=== PATIENT | male | born 1940 | race Caucasian/White ===

== ENCOUNTER → 2024-04-17 06:56 | Outpatient (REF) | payer MEDICARE, OTHER, SELFPAY | LOC: RAD 06:56 | PROVIDERS: ATTENDING PHYSICIAN Surgery Vascular Surgery; FAMILY PHYSICIAN Internal Medicine | DX: I71.40 Abdominal aortic aneurysm, without rupture, unspecified (principal); I65.22 Occlusion and stenosis of left carotid artery; I73.9 Peripheral vascular disease, unspecified | CPT/HCPCS: 76770; 93880; 93922; 93925 ==

== ENCOUNTER → 2024-06-04 11:24 | Outpatient (REF) | payer MEDICARE, OTHER, SELFPAY | LOC: RAD 11:24 | PROVIDERS: ATTENDING PHYSICIAN Nurse Practitioner Family; FAMILY PHYSICIAN Internal Medicine | DX: U07.1 COVID-19 (principal); R09.89 Other specified symptoms and signs involving the circulatory and respiratory systems | CPT/HCPCS: 71046 ==

== ENCOUNTER 2024-06-14 17:48 | Emergency (ER) | payer MEDICARE, OTHER, SELFPAY ==
[2024-06-14 17:51] VITALS: BP 147/78
[2024-06-14 18:12] LABS: % Basophils 0.5 % (0-2); % Eosinophils 3.3 % (0-6); % Immature Granulocytes 1.8 % (0-0.5); % Lymphocytes 12.9 % (20.5-51.1); % Monocytes 16.3 % (1.7-9.3); % Neutrophils 65.2 % (42.2-75.2); Absolute Eosinophils 0.3 10^3/uL (0-0.7); Absolute Immature Granulocytes 0.1 10^3/uL (0-0.05); Absolute Monocytes 1.3 10^3/uL (0.1-0.6); Absolute Neutrophils 5.2 10^3/uL (1.4-6.5); Hematocrit 42.2 % (39.0-52.0); Hemoglobin 14.5 g/dL (13.0-18.0); Mean Corp Hgb Conc. 34.4 g/dL (33.0-37.0); Mean Corpuscular Volume 81.5 fL (80.0-94.0); Mean Platelet Volume 11.3 fL (7.4-10.4); Nucleated Red Blood Cells % 0 % (-); Platelet Count 222 10^3/uL (130-400); Red Blood Cell Count 5.18 10^6/uL (4.70-6.10); Red Cell Dist. Width 15.9 % (11.5-14.5); White Blood Cell Count 7.9 10^3/uL (4.8-10.8)
[2024-06-14 18:24] LABS: ALT (SGPT) 21 U/L (0-50); AST (SGOT) 30 U/L (17-59); Albumin 3.7 g/dl (3.5-5.0); Alkaline Phosphatase 111 U/L (38-126); Blood Urea Nitrogen 27 mg/dl (9-20); Calcium 9.5 mg/dl (8.4-10.2); Carbon Dioxide 25 mmol/L (22-30); Chloride 98 mmol/L (98-107); Glucose 84 mg/dl (70-99); Potassium 4.4 mmol/L (3.5-5.1); Sodium 131 mmol/L (135-145); Total Bilirubin 1.1 mg/dl (0.2-1.3); Total Protein 6.2 g/dl (6.3-8.2); eGFR 54.85
--- NOTE | 2024-06-14 19:46 | ED.GENMED ---
History of Present Illness
General
Chief Complaint: Blood Pressure Problem
Source: patient, spouse and family
Time Seen by Provider: 06/14/24 19:29
History of Present Illness
History of Present Illness:
84-year-old male with past medical history of AAA, previous CVA, hypertension, hyperlipidemia presenting to the emergency department for evaluation with family due to fatigue and low blood pressure since patient was diagnosed with COVID back on May
. Patient reports that he still has a very faint cough but family is more concerned with the episodes of fatigue and noting that at times his blood pressure is as low as 80/60. Patient notified his meat and seafood clerk to told him to back off his
lisinopril which she did 10 days ago and was given a prescription for midodrine but has yet to take this medication. Patient also notes he was started on antibiotic for pneumonia prevention and has been on this for 6 days, will be finished on
Tuesday. Patient is denying any chest pain, shortness of breath, abdominal pain, nausea, vomiting, bowel changes or urinary symptoms or any other concerns at this time.
Past History
Past History
ED Past Medical History: CAD, CVA, HTN, Hypercholesterolemia and Other (Previous CABG, coronary stent, hypertension, chronic kidney disease, gout); Negative CHF
ED Past Surgical History: Other (femoral artery stent placement)
Social History
Tobacco: Former smoker
Alcohol: None
Drug: None
Personal:
Living: with family
Employment: Retired
Family History
Family History: Other (Father with brain tumor brother and mother with colon cancer)
Review of Systems
Review of Systems
All Other Systems: ROS reviewed and negative except as documented in HPI and ROS
Phy Exam
Physical Exam
Physical Exam:
GENERAL: Alert , in no apparent distress
Vital signs: Blood pressure repeated and was actually elevated at 180/80
EYE: conjunctiva clear
NECK: Supple
ENT: o/p clr, mmm.
CARDIAC: Regular rate and rhythm
LUNGS: Clear breath sounds bilaterally, no acute respiratory distress, no wheezes/rales/rhonchi
NEUROLOGICAL: Alert and oriented
SKIN: Warm and dry, skin intact.
MUSCULOSKELETAL: well perfused.
PSYCH: Normal and appropriate interaction.
Scores
Heart Failure Risk
Heart Failure Risk Score: Not Applicable
Heart Score for Chest Pain Patients
STEMI patient?: Not applicable
Withdrawal Assessment of Alcohol
Withdrawal Assessment Completed?: Not applicable
Course
Orders/Labs/Results
Orders:
Orders
06/14/24 18:05
Complete Blood Count/With Diff Urgent
Comprehensive Metabolic Panel Urgent
06/14/24 19:44
Electrocardiogram (*1) Urgent
Reason for Study: Fatigue / Weakness
EKG- Treatment ONCE
06/14/24 20:41
Troponin I Urgent
Abnormal Lab Results
06/14/24
18:05
RDW 15.9 H %
(11.5-14.5)
MPV 11.3 H fL
(7.4-10.4)
Abs Immat Gran (auto) 0.1 H 10^3/uL
(0-0.05)
Absolute Lymphs (auto) 1.0 L 10^3/uL
(1.2-3.4)
Absolute Monos (auto) 1.3 H 10^3/uL
(0.1-0.6)
Immature Gran % 1.8 H %
(0-0.5)
Lymphocytes % 12.9 L %
(20.5-51.1)
Monocytes % 16.3 H %
(1.7-9.3)
Sodium 131 L mmol/L
(135-145)
BUN 27 H mg/dl
(9-20)
Total Protein 6.2 L g/dl
(6.3-8.2)
06/14/24 18:05
06/14/24 18:05
Vital Signs
Initial and Last Documented VS:
Initial Vital Signs
Temp Pulse Resp BP Pulse Ox
98.2 F 68 18 147/78 91
06/14/24 17:51 06/14/24 17:51 06/14/24 17:51 06/14/24 17:51 06/14/24 17:51
Last Documented Vital Signs
Temp Pulse Resp BP Pulse Ox
98.2 F 68 18 147/78 95
06/14/24 17:51 06/14/24 17:51 06/14/24 17:51 06/14/24 17:51 06/14/24 20:35
Wafer Polisher consulted with Physician
Wafer Polisher consulted with physician?: Yes
Name of Physician Consulted: Albert
MDM/Problems Addressed
Differential Diagnosis Includes:
Post COVID syndrome, symptomatic hypotension, electrolyte disturbance, less concern for bacteremia/sepsis
MDM/Problems Addressed:
84-year-old male presenting emergency department for evaluation of generalized fatigue and reportedly low blood pressure at home, here in the ER blood pressure is actually on the higher side and this is without patient taking midodrine that was
prescribed by nephrology. Lab work was initiated in triage and shows very mild hyponatremia and prerenal azotemia. I did offer fluids however patient declines and states he is okay continuing to drink. Will check an EKG. At this time I do think
it is reasonable for outpatient management. Patient and family are in agreement. As long as EKG is unremarkable patient will be stable for discharge home.
*Pulse Oximetry
Patient hypoxic: no
*EKG
Interpreted by ED Provider?: Yes
Comparison EKG: changes noted
Heart Rate: 62
Rate: normal
Rhythm: sinus
Napoleon: normal axis
Ischemia: T-wave inversion (V2 through V4)
*Critical Care Note
Total Time (30-74mins, 75-104mins- exclusive of procedures): Not Applicable
Data Reviewed
Review of Other/Old Records Reveals: Labs and Records
Source: patient, records, spouse and family
Comment
Comment:
Patient's EKG did show new T wave inversions in leads V2 through V4. This is changed from his last EKG in 2021. Due to these changes and patient's presenting symptoms will add troponin onto workup. If this is negative patient can be discharged
home with close outpatient follow-up.
Patient Management
Escalation/DeEscalation of care consider admission/obs:
Patient's troponin is negative. Stable for discharge home and advised on close outpatient follow-up with primary care provider. Patient and family are aware of return precautions to the ER.
ED Attending Note
-
Portions of this chart may have been created with voice recognition software.� Occasional wrong word or��sound alike� substitutions may have occurred due to the inherent limitations of voice recognition software.
Discharge Plan
Departure
Patient Disposition: Home (Routine Discharge)
Date of Disposition: 06/14/24
Time of Disposition: 21:16
Patient with high blood pressure during this ER visit?: Yes
Discharge Problem:
Fatigue
Instructions: Fatigue (DC)
Prescriptions:
No Action
atorvastatin 40 MG tablet
40 mg PO DAILY
allopurinol 100 MG tablet
100 mg PO DAILY
coenzyme L70-[id number] E 1 CAP capsule
1 cap PO DAILY
Eliquis 5 MG tablet
5 mg PO BID Qty: 120 0RF
aspirin [Aspir-Low] 81 MG tablet,delayed release (DR/EC)
81 mg PO DAILY Qty: 30 0RF
pantoprazole 40 MG tablet,delayed release (DR/EC)
40 mg PO DAILY
lisinopril 10 mg Tablet
10 mg PO DAILY
amiodarone 100 mg Tablet
100 mg PO Q2D
cholecalciferol (vitamin D3) [Vitamin D3] 50 mcg (2,000 unit) Tablet
2,000 unit PO DAILY
iron 25 MG
25 mg PO DAILY
Referrals:
UNKNOWN - PT DOES,NOT KNOW [Family Provider] -
Interventions
Interventions:
*Risk Screen - Suicide Last Done: 06/14/24 17:51
*General Assessment Last Done: 06/14/24 17:51
*Neglect/Abuse Screening Last Done: 06/14/24 17:51
ED- Fall Risk Assessment Last Done: 06/14/24 20:35
*ED COVID-19 Vaccine History Last Done: 06/14/24 17:51
ED- Cardiac Assessment Last Done: 06/14/24 20:35
ED- Neurological Assessment Last Done: 06/14/24 20:35
ED- Pulmonary Assessment Last Done: 06/14/24 20:35
Discharge Date and Time
Print Language: SINHALA
[2024-06-14 21:11] LABS: Troponin I 0.019 ng/ml
[2024-06-14 21:56] VITALS: BP 138/72
== END 2024-06-14 22:02 | disposition home or self-care (01) ==
LOC: EMR 17:48
PROVIDERS: Physician Assistant Medical; Student in an Organized Health Care Education/Training Program; EMERGENCY PHYSICIAN Emergency Medicine
DX: R53.83 Other fatigue (principal); I12.9 Hypertensive chronic kidney disease with stage 1 through stage 4 chronic kidney disease, or unspecified chronic kidney disease; N18.9 Chronic kidney disease, unspecified; Z86.73 Personal history of transient ischemic attack (TIA), and cerebral infarction without residual deficits; E78.00 Pure hypercholesterolemia, unspecified; Z87.891 Personal history of nicotine dependence
CPT/HCPCS: 99284; 80053; 84484; 85025; 93005

== ENCOUNTER 2024-07-03 04:11 | Inpatient (IN) | payer MEDICARE, OTHER, SELFPAY ==
[2024-07-03] VITALS (25 sets, daily range): BP systolic 102–155; BP diastolic 57–94; BMI 22.8; BMI 21.9; BMI 21.4
[2024-07-03 01:10] LABS: % Basophils 0.6 % (0-2); % Eosinophils 3.8 % (0-6); % Immature Granulocytes 0.4 % (0-0.5); % Lymphocytes 13.9 % (20.5-51.1); % Monocytes 12.5 % (1.7-9.3); % Neutrophils 68.8 % (42.2-75.2); Absolute Basophils 0.1 10^3/uL (0-0.2); Absolute Eosinophils 0.4 10^3/uL (0-0.7); Absolute Immature Granulocytes 0.1 10^3/uL (0-0.05); Absolute Lymphocytes 1.6 10^3/uL (1.2-3.4); Absolute Monocytes 1.4 10^3/uL (0.1-0.6); Absolute Neutrophils 7.8 10^3/uL (1.4-6.5); Hematocrit 39.4 % (39.0-52.0); Hemoglobin 13.3 g/dL (13.0-18.0); Mean Corp Hgb Conc. 33.8 g/dL (33.0-37.0); Mean Corpuscular Hgb 27.9 pg (27.0-31.0); Mean Corpuscular Volume 82.8 fL (80.0-94.0); Nucleated Red Blood Cells % 0 % (-); Platelet Count 185 10^3/uL (130-400); Red Blood Cell Count 4.76 10^6/uL (4.70-6.10); Red Cell Dist. Width 17.3 % (11.5-14.5); White Blood Cell Count 11.3 10^3/uL (4.8-10.8)
[2024-07-03 01:23] LABS: ALT (SGPT) 20 U/L (0-50); AST (SGOT) 44 U/L (17-59); Albumin 3.5 g/dl (3.5-5.0); Alkaline Phosphatase 96 U/L (38-126); Blood Urea Nitrogen 22 mg/dl (9-20); Calcium 9.3 mg/dl (8.4-10.2); Carbon Dioxide 25 mmol/L (22-30); Chloride 103 mmol/L (98-107); Estimated Creatinine Clearance 45 ml/min; Glucose 109 mg/dl (70-99); Potassium 3.9 mmol/L (3.5-5.1); Sodium 140 mmol/L (135-145); Total Protein 6.1 g/dl (6.3-8.2); eGFR 50.18
--- NOTE | 2024-07-03 01:32 | ED.GENMED ---
History of Present Illness
<LUCRECIA Bates - Last Filed: 07/03/24 03:58>
General
Chief Complaint: Breathing Problem
Source: patient
Exam Limitations: none
Time Seen by Provider: 07/03/24 01:13
History of Present Illness
History of Present Illness:
This is a 84 year old male that comes in with c/o SOB. States that on Tuesday morning when he got up he always checked his BP. States that his HR was elevated to 131. States that he waited a while and it remained at 125-131. States that he takes
Amiodarone every other day and yesterday was an off day. States that he did take a dose. Then tonight he started around 11:15 with SOB. States that he tired to wait a while and he laid down for 20-30 min and things did not get any better so he came
in. Denies any fever, chills, chest pain, abd pain, nausea, vomiting, diarrhea, headache, dizziness, urinary burning.
Past History
<LUCRECIA Bates - Last Filed: 07/03/24 03:58>
Past History
ED Past Medical History: CAD, CVA (No residual weakness), HTN, Hypercholesterolemia and Other ( chronic kidney disease, gout, PVD, Gi bleeding, ); Negative CHF
ED Past Surgical History: Cardiac and Other (femoral artery stent placement, AAA repaired, Eye lid surgery, Right fem-pop bypass with 2 stents, Hernia repair)
Social History
Tobacco: Former smoker
Alcohol: None
Drug: None
Personal:
Living: with family
Employment: Retired
Family History
Family History: Other (Father with brain tumor brother and mother with colon cancer)
Review of Systems
<LUCRECIA Bates - Last Filed: 07/03/24 03:58>
Review of Systems
All Other Systems: ROS reviewed and negative except as documented in HPI and ROS
Constitutional: Reports no symptoms; Denies fever or chills
EENT: Reports no symptoms
Respiratory: Reports trouble breathing; Denies cough
Cardiac: Reports no symptoms; Denies chest pain
ABD/GI: Reports no symptoms; Denies abdominal pain, nausea, vomiting or diarrhea
: Reports no symptoms; Denies dysuria, frequency or urgency
Musculoskeletal: Reports no symptoms
Skin: Reports no symptoms
Neurological: Reports no symptoms; Denies dizzy or headache
Psychiatric: Reports no symptoms
Phy Exam
<LUCRECIA Bates - Last Filed: 07/03/24 03:58>
General Physical Exam
General Presentation: mild distress
General age: appears stated age
General Skin: warm and dry
General Habitus: elderly
General Mental: alert
General Hydration: appears well hydrated
ENT Exam
ENT Exam: TM's normal (Moderate amount of Cerumen), pharynx normal and neck supple
Eye Exam
Eye Exam: EOMI
Cardiovascular Exam
Cardiovascular Exam: regular rate/rhythm (PVC's noted) and normal peripheral pulses
Pulmonary Exam
Pulmonary Exam: chest non tender, no rhonchi, no wheezing and other (Bilateral rales noted, Occasional dry cough noted)
Gastrointestinal Exam
Gastrointestinal Exam: normal bowel sounds, non tender, soft, no organomegaly, no pulsatile mass and non distended
Musculoskeletal Exam
Musculoskeletal Exam: full ROM and edema (+1 pitting edema R>L)
Skin Exam
Skin Exam: normal color, warm/dry, no rash and no petechia
Psychiatric Exam
Psychiatric Exam: normal mood/affect
Scores
<LUCRECIA Bates - Last Filed: 07/03/24 03:58>
Heart Failure Risk
Heart Failure Risk Score: Yes
History of Stroke or TIA: Yes
History of intubation for respiratory distress: No
Heart rate on ED arrival >/= 110: No
SaO2 <90% on arrival on room air: Yes
HR >/=110 during 3min walk test (or too ill to perform test): Yes
ECG has acute ischemic changes: No
Urea >/=12mmol/L (BUN 33.6mg/dL): No
Serum CO2>/=35mmol/L: No
Troponin I or T elevated to LA Level (0.4mg/dL): Yes
NT-proBNP >/=5,000ng/L (5,000pg/ml): Yes
HF Risk Score: 7
Admission Status: VERY HIGH RISK 69.8% Consider admission to hospital
Course
<Chante Hannah, LUCRECIA - Last Filed: 07/03/24 03:58>
Orders/Labs/Results
Orders:
Orders
07/03/24 00:51
Chest [CR Chest - 2 Views ] Urgent
Comment:
Reason For Exam: SOB
07/03/24 00:57
CMP [Comprehensive Metabolic Panel] Urgent
Complete Blood Count/With Diff Urgent
07/03/24 01:42
Ondansetron Orally Disint [Zofran Odt (Orally Disintegrating)] 4 mg PO NOW STA
07/03/24 01:57
Furosemide [Lasix] 60 mg IV NOW STA
07/03/24 02:01
NT-proBNP Urgent
Troponin I Urgent
07/03/24 02:23
Electrocardiogram (*1) Urgent
Reason for Study: Shortness of Breath
EKG- Treatment ONCE
07/03/24 02:25
Diltiazem 125 mg/125 ml Nss [Cardizem] 125 mg in 125 ml IV NOW
Initial dose in mg/hr, then titrate:: 5
Titrate to keep:: Heart rate 80-100 bpm
Titrate by mg/hr:: 5 mg/hr
Frequency of titrations (minutes):: 15
Maximum dose in mg/hr:: 15
Diltiazem HCl [Cardizem] 10 mg IV NOW STA
07/03/24 02:42
EKG- Treatment ONCE
07/03/24 03:43
Aspirin 325 mg PO NOW STA
07/03/24 03:49
EKG [Electrocardiogram (*1)] Urgent
Reason for Study: Chest Pain
Troponin I Urgent
07/03/24 03:53
PTT Urgent
Comment: Obtain baseline before beginning heparin infusion if not already collected
Pharmacy Request to Place See Dose Instructions PO NOW STA
Discontinue all Active Warfarin orders?: Yes
Nursing to Place Non Medication Order As Directed
Physician Order: PTT 6 hours after initial start of Heparin infusion
07/03/24 04:00
Heparin 69103 Units/250 ml 25,000 units in 250 ml IV PER PROTOCOL
Weight to be used for heparin protocol in kilograms (kg):: 78.5
Protocol:: Cardiac Tx/Acute Coronary
PTT Goal Range to be used:: PTT 73 to 111 seconds
Order type:: Initial
INITIAL Infusion Dose (UNITS/KG/hr) & then follow protocol:: 12 units/kg/hr
Infusion Dose in UNITS/hr & then follow protocol (UNITS/hr):: 950
INFUSION RATE in mL/hr & then follow protocol (mL/hr):: 9.5
PTT less than or equal to 64 seconds:: Increase rate by 200 units/hr (+ 2 mL/hr)
PTT 64.1 to 72.9 seconds:: Increase rate by 100 units/hr (+ 1 mL/hr)
PTT 73 to 111 seconds:: Target Range. No change in rate.
PTT 111.1 to 130.9 seconds:: Decrease rate by 100 units/hr (- 1 mL/hr)
PTT 131 to 199.9 seconds:: HOLD for 1 hr. Then decrease rate by 200 units/hr (- 2 mL/hr)
PTT greater than or equal to 200 seconds:: HOLD for 2 hrs & Notify Provider. Then decrease by 200 units/hr (-
2 mL/hr)
Lab follow-up:: Each change, PTT q6h until 2 consecutive are therapeutic. Then PTT
daily.
Pharmacy Request to Place See Dose Instructions IV DIRECTED
07/03/24 05:00
Electrocardiogram (*1) Urgent
Reason for Study: Shortness of Breath
Other Reason for Exam: Repeat with Troponin
Troponin I Urgent
Abnormal Lab Results
07/03/24 07/03/24
00:57 02:01
WBC 11.3 H 10^3/uL
(4.8-10.8)
RDW 17.3 H %
(11.5-14.5)
MPV 12.0 H fL
(7.4-10.4)
Abs Immat Gran (auto) 0.1 H 10^3/uL
(0-0.05)
Absolute Neuts (auto) 7.8 H 10^3/uL
(1.4-6.5)
Absolute Monos (auto) 1.4 H 10^3/uL
(0.1-0.6)
Lymphocytes % 13.9 L %
(20.5-51.1)
Monocytes % 12.5 H %
(1.7-9.3)
BUN 22 H mg/dl
(9-20)
Creatinine 1.4 H mg/dL
(0.7-1.3)
Glucose 109 H mg/dl
(70-99)
Troponin I 4.230 H* ng/ml
Total Protein 6.1 L g/dl
(6.3-8.2)
07/03/24 00:57
07/03/24 00:57
Leukocytosis, Dehydration. Cr slightly elevated. glucose nonfasting. Total jaron slightly low. Troponin 4.230, Pro-BNP 23,900
Vital Signs
Initial and Last Documented VS:
Initial Vital Signs
Temp Pulse Resp BP Pulse Ox
98.6 F 93 28 155/93 87
07/03/24 00:52 07/03/24 00:52 07/03/24 00:52 07/03/24 00:52 07/03/24 00:52
Last Documented Vital Signs
Temp Pulse Resp BP Pulse Ox
98.6 F 107 20 120/78 93
07/03/24 00:52 07/03/24 03:45 07/03/24 03:45 07/03/24 03:00 07/03/24 03:45
Supervisor Dimension Warehouse consulted with Physician
Supervisor Dimension Warehouse consulted with physician?: Yes
Name of Physician Consulted: Dr. Mccullough
<Dashawn Mccullough, DO - Last Filed: 07/03/24 02:31>
Orders/Labs/Results
Orders:
Orders
07/03/24 00:51
Chest [CR Chest - 2 Views ] Urgent
Comment:
Reason For Exam: SOB
07/03/24 00:57
CMP [Comprehensive Metabolic Panel] Urgent
Complete Blood Count/With Diff Urgent
07/03/24 01:42
Ondansetron Orally Disint [Zofran Odt (Orally Disintegrating)] 4 mg PO NOW STA
07/03/24 01:57
Furosemide [Lasix] 60 mg IV NOW STA
07/03/24 02:01
NT-proBNP Urgent
Troponin I Urgent
07/03/24 02:23
Electrocardiogram (*1) Urgent
Reason for Study: Shortness of Breath
EKG- Treatment ONCE
07/03/24 02:25
Diltiazem 125 mg/125 ml Nss [Cardizem] 125 mg in 125 ml IV NOW
Initial dose in mg/hr, then titrate:: 5
Titrate to keep:: Heart rate 80-100 bpm
Titrate by mg/hr:: 5 mg/hr
Frequency of titrations (minutes):: 15
Maximum dose in mg/hr:: 15
Diltiazem HCl [Cardizem] 10 mg IV NOW STA
07/03/24 02:42
EKG- Treatment ONCE
07/03/24 03:43
Aspirin 325 mg PO NOW STA
07/03/24 03:49
EKG [Electrocardiogram (*1)] Urgent
Reason for Study: Chest Pain
Troponin I Urgent
07/03/24 03:53
PTT Urgent
Comment: Obtain baseline before beginning heparin infusion if not already collected
Pharmacy Request to Place See Dose Instructions PO NOW STA
Discontinue all Active Warfarin orders?: Yes
Nursing to Place Non Medication Order As Directed
Physician Order: PTT 6 hours after initial start of Heparin infusion
07/03/24 04:00
Heparin [id number] Units/250 ml 25,000 units in 250 ml IV PER PROTOCOL
Weight to be used for heparin protocol in kilograms (kg):: 78.5
Protocol:: Cardiac Tx/Acute Coronary
PTT Goal Range to be used:: PTT 73 to 111 seconds
Order type:: Initial
INITIAL Infusion Dose (UNITS/KG/hr) & then follow protocol:: 12 units/kg/hr
Infusion Dose in UNITS/hr & then follow protocol (UNITS/hr):: 950
INFUSION RATE in mL/hr & then follow protocol (mL/hr):: 9.5
PTT less than or equal to 64 seconds:: Increase rate by 200 units/hr (+ 2 mL/hr)
PTT 64.1 to 72.9 seconds:: Increase rate by 100 units/hr (+ 1 mL/hr)
PTT 73 to 111 seconds:: Target Range. No change in rate.
PTT 111.1 to 130.9 seconds:: Decrease rate by 100 units/hr (- 1 mL/hr)
PTT 131 to 199.9 seconds:: HOLD for 1 hr. Then decrease rate by 200 units/hr (- 2 mL/hr)
PTT greater than or equal to 200 seconds:: HOLD for 2 hrs & Notify Provider. Then decrease by 200 units/hr (-
2 mL/hr)
Lab follow-up:: Each change, PTT q6h until 2 consecutive are therapeutic. Then PTT
daily.
Pharmacy Request to Place See Dose Instructions IV DIRECTED
07/03/24 05:00
Electrocardiogram (*1) Urgent
Reason for Study: Shortness of Breath
Other Reason for Exam: Repeat with Troponin
Troponin I Urgent
Abnormal Lab Results
07/03/24 07/03/24
00:57 02:01
WBC 11.3 H 10^3/uL
(4.8-10.8)
RDW 17.3 H %
(11.5-14.5)
MPV 12.0 H fL
(7.4-10.4)
Abs Immat Gran (auto) 0.1 H 10^3/uL
(0-0.05)
Absolute Neuts (auto) 7.8 H 10^3/uL
(1.4-6.5)
Absolute Monos (auto) 1.4 H 10^3/uL
(0.1-0.6)
Lymphocytes % 13.9 L %
(20.5-51.1)
Monocytes % 12.5 H %
(1.7-9.3)
BUN 22 H mg/dl
(9-20)
Creatinine 1.4 H mg/dL
(0.7-1.3)
Glucose 109 H mg/dl
(70-99)
Troponin I 4.230 H* ng/ml
Total Protein 6.1 L g/dl
(6.3-8.2)
07/03/24 00:57
07/03/24 00:57
Vital Signs
Initial and Last Documented VS:
Initial Vital Signs
Temp Pulse Resp BP Pulse Ox
98.6 F 93 28 155/93 87
07/03/24 00:52 07/03/24 00:52 07/03/24 00:52 07/03/24 00:52 07/03/24 00:52
Last Documented Vital Signs
Temp Pulse Resp BP Pulse Ox
98.6 F 107 20 120/78 93
07/03/24 00:52 07/03/24 03:45 07/03/24 03:45 07/03/24 03:00 07/03/24 03:45
<LUCRECIA Bates - Last Filed: 07/03/24 03:58>
MDM/Problems Addressed
Differential Diagnosis Includes:
CHF, Pleural effusion,
MDM/Problems Addressed:
This is a 84 year old male that comes in with c/o SOB. States that his heart rate was elevated today and then tonight he was SOB.
Will check labs, Chest x-ray
Back into see patient. Explained that his chest x-ray shows CHF and there is a pleural effusion. Will give IV Lasix and admit as patient is also Hypoxic and on 4 liters to get a Pulse ox of 95%,
Patient went into atrial fib. ECG: rate 133, Atrial fib with PVC's, Normal axis. QRS normal. ST elevation, V2, V3, V4, Will start on Cardizem.
Chronic conditions affecting care:
NA
Acute Exacerbation and/or Progression of Chronic Illness:
NA
<LUCRECIA Bates - Last Filed: 07/03/24 03:58>
*Pulse Oximetry
Patient hypoxic: yes
Comment: 88% on 2 liters to increased to 4 liters nasal canula
*Food Preparer Interpretation
Rate: normal
Heart Rate: 89
Rhythm: sinus and PVC's (Multifocal, Couplets noted)
*Critical Care Note
Total Time (30-74mins, 75-104mins- exclusive of procedures): Not Applicable
ED Attending Note
<LUCRECIA Bates - Last Filed: 07/03/24 03:58>
-
Portions of this chart may have been created with voice recognition software.� Occasional wrong word or��sound alike� substitutions may have occurred due to the inherent limitations of voice recognition software.
<Dashawn Mccullough DO - Last Filed: 07/03/24 02:31>
ED Attending Note
Patient seen and examined by attending physician: Yes
I performed the substantive portion of visit, reviewed & personally made and approve the management plan that is documented in note by myself or NAOMIE.: Yes
ED Attending Note:
Seen with SOFTWARE INSTALLER examined independently shortness of breath, chest x-ray labs noted looks like he went into rapid A-fib was started on Cardizem
Discharge Plan
Departure
Patient Disposition: Admit
Date of Disposition: 07/03/24
Time of Disposition: 02:02
Admit to: Telemetry
Presentation/result/management discussed w/ accepting MD/DO: Hospitalist
Patient with high blood pressure during this ER visit?: No
Condition: Good
Covid-19: Not Applicable
Discharge Problem:
CHF (congestive heart failure), Pleural effusion, Hypoxia, Elevated troponin
Prescriptions:
No Action
atorvastatin 40 MG tablet
40 mg PO DAILY
allopurinol 100 MG tablet
100 mg PO DAILY
coenzyme L85-jchrzty E 1 CAP capsule
1 cap PO DAILY
aspirin [Aspir-Low] 81 MG tablet,delayed release (DR/EC)
81 mg PO DAILY Qty: 30 0RF
pantoprazole 40 MG tablet,delayed release (DR/EC)
40 mg PO DAILY
lisinopril 10 mg Tablet
10 mg PO DAILY
amiodarone 100 mg Tablet
100 mg PO Q2D
cholecalciferol (vitamin D3) [Vitamin D3] 50 mcg (2,000 unit) Tablet
2,000 unit PO DAILY
iron 25 MG
25 mg PO DAILY
Eliquis 5 MG tablet
2.5 mg PO BID
Referrals:
Ron Cazares, DO [Family Provider] -
Interventions
Interventions:
*Risk Screen - Suicide Last Done: 07/03/24 00:52
*General Assessment Last Done: 07/03/24 00:52
*Neglect/Abuse Screening Last Done: 07/03/24 00:52
ED- Fall Risk Assessment Last Done: 07/03/24 00:59
*ED COVID-19 Vaccine History Last Done: 07/03/24 00:52
ED- Cardiac Assessment Last Done: 07/03/24 01:04
ED- Pulmonary Assessment Last Done: 07/03/24 01:04
Discharge Date and Time
Print Language: BURUN[place]
[2024-07-03] MEDS: LASIX 60 MG IV (02:02)
[2024-07-03] MEDS: CARDIZEM 10 MG IV (02:36)
[2024-07-03] MEDS: CARDIZEM 125 IV ×2 (02:38→10:52)
[2024-07-03 02:41] LABS: NT-proBNP 23900 pg/ml
[2024-07-03] MEDS: ASPIRIN 325 MG PO (03:45)
--- NOTE | 2024-07-03 04:01 | HPS.HSE ---
Family Physician
-
Family Physician: Ron Cazares
Chief Complaint
-
SOB
History of Present Illness
Patient is an 84y M with PMH significant for paroxysmal A-Fib, ASCVD / PAD and CKD III who presents to ED complaining of SOB. Patient states that he checked his BP Tuesday AM and noted that his pulse was elevated in the 130s. This was not
typical for him. He has no complaints / symptoms at that time including chest pain, dyspnea or palpitations. He took an extra amiodarone after discussion with his Digital Sales Planner (is typically on fukvp-amrzu-wmy dosing and today is an 'off' day). His
heart rates decreased into the 80s later in the day. This evening around 11PM he woke to use the bathroom. He walked to the bathroom and back and became abruptly short of breath. He sat down in bed however his symptoms did not subside. he woke
his and they presented to the ED for further evaluation.
Patient denies any em of chest pain, pressure, etc. He denies any prior h/o similar symptoms, prior [place], etc.
In the ED, patient was placed on supplemental oxygen and received a dose of IV Lasix and he states that he feels improved from arrival.
Medical History
Past Medical History
Past Medical History: Reports Other
Additional Past Medical History:
ASCVD (PAD / Carotid Stenosis)
Paroxysmal Atrial Fibrillation (Lora-operatively)
AAA
CKD III
GERD / PUD
Rheumatic Fever
Past Surgical History: Reports Other
Additional Past Surgical History:
Right Fem-Pop Bypass
Bypass Angioplasty
EVAR
Femoral Artery Aneurysm Repair
Bilateral Ectropion Surgeries
Hernia Repair
Social History
Tobacco: Former Smoker (Quit smoking 15 years ago. > 40 pack years total use.)
Alcohol: None
Drug: None
Personal:
Living: With Family
Family History
Family History: Other (Mother: Colon Cancer Father: Colon Cancer Brother: Brain Tumor)
Allergies / Home Medications
Allergies reflects when Allergies were last updated in [facility].
Home Medications with original date entered in [facility]
Allergy/Medication List:
Allergies
Allergy/AdvReac Type Severity Reaction Status Date / Time
Iodinated Contrast Media Allergy itch/rednes Verified 07/03/24 00:58
[IV Dye, Iodine Containing s
Contrast ]
Home Medications
atorvastatin 40 mg tablet 40 mg PO DAILY High cholesterol 11/10/16
allopurinol 100 mg tablet 100 mg PO DAILY Gout 09/08/21
coenzyme [id number] E 100 mg-100 unit capsule 1 cap PO DAILY Supplement 11/12/21
aspirin 81 mg tablet,delayed release (Aspir-Low) 81 mg PO DAILY ##30 11/24/21
amiodarone 100 mg tablet 100 mg PO Q2D 07/26/22
cholecalciferol (vitamin D3) 50 mcg (2,000 unit) tablet (Vitamin D3) 2,000 unit PO DAILY 07/26/22
iron 25 mg PO DAILY 07/26/22
lisinopril 10 mg tablet 10 mg PO DAILY 07/26/22
pantoprazole 40 mg tablet,delayed release 40 mg PO DAILY 07/26/22
apixaban 5 mg tablet (Eliquis) 2.5 mg PO BID 07/03/24
Review of Systems
-
History Source: Patient
A 12 point ROS was completed and negative except as noted: Yes
Constitutional: Reports Fatigue; Denies Fever or Chills
EENT: Denies Sore Throat
Respiratory: Reports Trouble Breathing; Denies Cough or Hemoptysis
Cardiac: Denies Chest Pain, Diaphoresis, Palpitations or Syncope
Abdomen/GI: Denies Abdominal Pain, Nausea, Vomiting or Diarrhea
: Denies Dysuria or Flank Pain
Musculoskeletal: Denies Joint Pain or Edema
Neurological: Denies Dizzy or Headache
Psych: Denies Depression or Anxiety
Physical Exam
Vital Signs
Vital Signs
Temp Pulse Resp BP Pulse Ox
98.6 F 107 20 120/78 93
07/03/24 00:52 07/03/24 03:45 07/03/24 03:45 07/03/24 03:00 07/03/24 03:45
Physical Exam
General: Other ( 84y M in no acute distress)
HEENT: Moist mucous membranes, PERRLA and Other (No JVD. Pos HJR.)
Respiratory: Other (Bibasilar rales about 1/2 up. No wheezes / rhonchi.)
Cardiac: S1/S2, Irregular Rhythm, Tachycardia and Murmur (II/ ARCENIO)
GI: Soft, Non Tender, Non Distended and Normal Bowel Sounds
Musculoskeletal: No Clubbing, No Cyanosis and Other (1+ pitting edema RLE which patient states is chronic.)
Neuro: AO x 3
Laboratory Results
-
07/03/24 00:57
07/03/24 00:57
Laboratory Results
Total Bilirubin 1.0 mg/dl (0.2-1.3) 07/03/24 00:57
AST 44 U/L (17-59) 07/03/24 00:57
ALT 20 U/L (0-50) 07/03/24 00:57
Alkaline Phosphatase 96 U/L (38-126) 07/03/24 00:57
Troponin I 4.230 ng/ml H* 07/03/24 02:01
Impression/Plan
-
A/P: Patient is an 84y M with PMH significant for ASCVD, CKD and PA-Fib who presents to ED complaining of SOB.
ACS / AMI
- Admit to IVU for further evaluation and treatment.
- Patient with ST-T changes on EKG concerning for active ischemia and initial troponin in the ED of 4.23.
- ASA given now and will start IV heparin infusion.
- Patient states that dyspnea (presenting symptom) is improved from arrival.
- ASA daily, statin, heparin, etc.
- Cardiology consulted - probable ischemic evaluation during stay.
- Follow for any new / worsening symptoms.
- Follow troponin to peak / monitor serial EKGs.
Acute HF - Unknown Type
- Suspect HFrEF due to AMI / ischemia as noted above.
- Pulm edema by exam and CXR - no prior h/o same.
- BNP = 23k
- Continue IV Lasix BID and follow I/Os, daily weights, etc.
- Check Echo.
- Cardiology eval as noted above.
Paroxysmal Atrial Fibrillation with Rapid Ventricular response
- Patient in sinus rhythm with PACs on arrival - now in A-Fib with RVR.
- IV Cardizem gtt started in the ED - titrate as needed for rate control.
- Hold Eliquis acutely while on IV heparin.
CKD III
- Stable. SCr is at / near known baseline.
- Follow for changes with diuresis +/- eventual cath.
- Hold lisinopril acutely - but would likely restart prior to D/C.
GERD / PUD
- Prior h/o GI bleeding on DAPT following PAD procedure.
- Continue daily PPI.
- Monitor for any signs / symptoms of blood loss.
DVT Prophylaxis: On IV Heparin
Code Status: Full
[2024-07-03 04:19] LABS: APTT 35.4 Sec (23.4-35.0)
[2024-07-03] MEDS: HEPARIN 25000 UNITS/250 ML IV (04:43)
[2024-07-03 07:39] LABS: Total Cholesterol 80 mg/dl (50-199)
[2024-07-03] MEDS: ASPIR LOW (ENTERIC COATED) 81 MG PO (08:00)
[2024-07-03] MEDS: PACERONE 100 MG PO (08:00)
[2024-07-03] MEDS: PROTONIX 40 MG PO (08:00)
[2024-07-03] MEDS: LIPITOR 40 MG PO (08:00)
[2024-07-03] MEDS: ZYLOPRIM 100 MG PO (08:00)
[2024-07-03] MEDS: LASIX 20 MG IV ×2 (08:00→16:22)
--- NOTE | 2024-07-03 08:11 | W.PN.HOSP.TC ---
Today's Communication/Plan
-
ECHO
await decision from cards, next steps
Assessment / Plan
Assessment / Plan
pt is an 84 year old male
ACS/AMI ?---Patient with ST-T changes on EKG concerning for active ischemia and initial troponin in the ED of 4.23--await cards--on IV heparin drip (Eliquis on hold)--will need ECHO--cont asa--possible cath (may need renal input given contrast
exposure and CKD) -Follow for any new / worsening symptoms--Follow troponin to peak / monitor serial EKGs.
Acute HF - Unknown Type - Suspect HFrEF due to AMI/ischemia as noted above - Pulm edema by exam and CXR - no prior h/o same- BNP = 23k- Continue IV Lasix BID and follow I/Os, daily weights, etc.- Check Echo.
Paroxysmal Atrial Fibrillation with Rapid Ventricular response- Patient in sinus rhythm with PACs on arrival - now in A-Fib with RVR-- IV Cardizem gtt started in the ED - titrate as needed for rate control-- Hold Eliquis acutely while on IV heparin.
CKD III--creat about baseline--consider need for renal consult clementine if cath planned- Hold lisinopril acutely - but would likely restart prior to D/C--watch creat with diuresis
GERD/PUD - Prior h/o GI bleeding on DAPT following PAD procedure - Continue daily PPI - Monitor for any signs / symptoms of blood loss.
DVT Prophylaxis: On IV Heparin
Code Status: Full
Anticipated Discharge: > 48 hours
Subjective/Interval History
-
Date of Service: July 03, 2024
pt feeling better than admission
Objective Data
-
Labs:
Laboratory Results
07/03/24 07/03/24 07/03/24
00:57 04:01 06:27
WBC 11.3 H
Hgb 13.3
Hct 39.4
Plt Count 185
APTT 35.4 H
Sodium 140 Pending
Potassium 3.9 Pending
Chloride 103 Pending
Carbon Dioxide 25 Pending
BUN 22 H Pending
Creatinine 1.4 H Pending
Glucose 109 H Pending
Calcium 9.3 Pending
Total Bilirubin 1.0
AST 44
ALT 20
Alkaline Phosphatase 96
07/03/24
11:00
WBC
Hgb
Hct
Plt Count
APTT Pending
Sodium
Potassium
Chloride
Carbon Dioxide
BUN
Creatinine
Glucose
Calcium
Total Bilirubin
AST
ALT
Alkaline Phosphatase
Vital Signs:
max temp for 24 hours
07/03/24
00:52
Temp 98.6 F
Vital Signs
Temp Pulse Resp BP Pulse Ox
97.4 F 94 21 117/73 93
07/03/24 08:05 07/03/24 06:30 07/03/24 06:30 07/03/24 06:02 07/03/24 06:30
I&O
07/02/24 07/03/24 07/04/24
06:59 06:59 06:59
Output Total 1000 / 1000 500 / 500
Balance -1000 / -1000 -500 / -500
Review of Systems
-
All other systems: Reviewed and negative
Respiratory: Reports Trouble Breathing (improved)
Cardiac: Denies Palpitations (does not feel the afib)
Physical Exam
-
General: Well Developed, Well Nourished and No Apparent Distress
HEENT: Normocephalic, Atraumatic and Oxygen (does not wear at home)
Respiratory: Clear to Auscultation; Negative Wheezes, Rales or Rhonchi
Cardiac: Irregular Rhythm
GI: Soft, Nontender, Nondistended and Normal Bowel Sounds
Musculoskeletal: No Clubbing and No Cyanosis; Negative No Edema (right leg (says that was his operated on leg))
Neuro: Awake and Alert
Psych: Calm
--- NOTE | 2024-07-03 08:23 | CM ---
Patient seen at bedside in ICU. Patient that he lives with his in a 2 story condo. Patient stated that he anticipates discharge home with . Patient is a volunteer here. Patient stated that he uses a cane for ambulation but has no other
DME. Patient indicated that his PCP is Dr. Stern and he uses the [facility]. CM will continue to follow for discharge home with VN vs home with no needs.
Plan; home with VN vs home with no needs.
--- NOTE | 2024-07-03 08:26 | CON.CAR ---
Addendum entered and electronically signed by Morris Sands MD 07/03/24 08:45:
sob has improved.
- continue with rate control
- patient has already received diuretic to tx HF
- monitor renal function
- wean O2
Original Note:
Consultation
Consultation Request
Date/Time Consultation Requested: 07/03/2024 8 AM
Date/Time Consultation Performed: 07/03/2024 BDM
Requesting Provider: Hospitalist
Performing Provider: Dr. Sands
Reason for Consultation: A-fib, shortness of breath, abnormal troponin
Medical History
-
History of Present Illness:
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
Note patient has an outpatient visit scheduled for 07/11/2024
84-year-old male with past medical history noted below who had COVID at the end of May there had been some adjustments in his medications so he has been checking his blood pressures multiple times in a day then on Tuesday noted that when he checked
his blood pressure that his heart rate was in the 130s. He took an extra dose of amiodarone which he only takes every other day then yesterday became increasingly short of breath and presented to the hospital with A-fib with RVR. Initial troponin
4 which is since trended downward no complaints of chest pain. He has had some increased shortness of breath with exertion over the past week. No orthopnea or lower extremity edema no other change in medications.
He is on anticoagulation with Eliquis with no bleeding issues. He denies missing any doses.
Patient admitted to the ICU currently comfortable shortness of breath is improved currently on 4 L nasal cannula oxygen
Initial ECG with A-fib with RVR question of ST elevation in V4 but currently ECG shows A-fib with controlled ventricular response and no acute ischemic changes.
chest x-ray in ER on 12/02/2023 without acute pulmonary process
Past medical history
paroxysmal atrial fibrillation
Hypertension
PVCs
Hyperlipidemia
CKD
PAD
AAA�EVAR 2011
Gout
CVA
Femoral artery aneurysm repair 2005
Right lower extremity arterial bypass with a right common femoral to BK popliteal artery bypass with ipsilateral nonreversed GSV 11/12/2021
Prior testing echocardiogram 12/07/2022 normal left ventricular function mild LVH, mild mitral regurgitation
Past Medical History
Past Medical History: Other (As noted above)
Social History
Tobacco: Other (Patient currently not smoking)
Family History
Family History: CAD
Allergies / Home Medications
Allergy/AdvReac Type Severity Reaction Status Date / Time
Iodinated Contrast Media Allergy itch/rednes Verified 07/03/24 00:58
[IV Dye, Iodine Containing s
Contrast ]
�Medication �Instructions �Recorded �Confirmed �Type
atorvastatin 40 mg tablet 40 mg PO DAILY High cholesterol 11/10/16 07/03/24 History
allopurinol 100 mg tablet 100 mg PO DAILY Gout 09/08/21 07/03/24 History
coenzyme [id number]-osfsnch E 100 mg-100 1 cap PO DAILY Supplement 11/12/21 07/03/24 History
unit capsule
aspirin 81 mg tablet,delayed 81 mg PO DAILY ##30 11/24/21 07/03/24 Rx
release (Aspir-Low)
amiodarone 100 mg tablet 100 mg PO Q2D 07/26/22 07/03/24 History
cholecalciferol (vitamin D3) 50 2,000 unit PO DAILY 07/26/22 07/03/24 History
mcg (2,000 unit) tablet (Vitamin
D3)
iron 25 mg PO DAILY 07/26/22 07/03/24 History
lisinopril 10 mg tablet 10 mg PO DAILY 07/26/22 07/03/24 History
pantoprazole 40 mg tablet,delayed 40 mg PO DAILY 07/26/22 07/03/24 History
release
apixaban 5 mg tablet (Eliquis) 2.5 mg PO BID 07/03/24 07/03/24 History
Review of Systems
-
All other systems: Negative unless noted
Physical Exam
Vital Signs
Temp Pulse Resp BP Pulse Ox
97.4 F 94 21 117/73 93
07/03/24 08:05 07/03/24 06:30 07/03/24 06:30 07/03/24 06:02 07/03/24 06:30
Lab Results
07/03/24 00:57
Troponin I 3.690 ng/ml H* 07/03/24 06:27
Sfo-I-Ifnlxfzsloc Pept 65909 pg/ml 07/03/24 02:01
Physical Exam
General: Well Developed, Well Nourished and Other (Awake alert cooperative no distress)
HEENT: Normocephalic, Anicteric and Other (Neck without adenopathy no JVD no carotid bruit)
Respiratory: Clear (Decreased breath sounds at the bases with no wheezes or rhonchi)
Cardiac: Irregular Rhythm and Other (No murmur rub or gallop)
GI: Soft, Non Tender and Non Distended
Musculoskeletal: No Clubbing, No Cyanosis and No Edema
Neuro: Awake, Alert and Oriented
Hematologic/Lymphatic: No Lymphadenopathy
Psych: Calm (Cooperative.)
Impression / Plan
-
A-fib with RVR. Patient had previously had A-fib after vascular surgery. Patient was in sinus rhythm on last office visit back in November 2022 also in sinus rhythm based on ECG in early June. Appears to have gone into A-fib on 07/02/2024
patient had A-fib with RVR. He was only maintained on Amio 100 mg every other day. He has been consistently on Eliquis.
-CHADSVASC - 6(age greater than 75, CVA/TIA, hypertension, PAD)
-Continue anticoagulation
-Echocardiogram
-Increase amiodarone dosing
-If patient does not spontaneously convert then would plan for cardioversion this admission.
.
Abnormal troponin.
-Exact cause unclear. May be type II OK related to A-fib with RVR and underlying CAD.
-Some transient ECG changes on presentation
-Troponin of 4. Trending down.
-Echocardiogram.
-Based on the above info and the patient's clinical course as well as his renal function will determine if we proceed with additional invasive versus noninvasive evaluation for CAD.
.
Creatinine elevation to 1.4. Will check follow-up result which is pending.
.
PAD
-AAA�EVAR 2011
-Right lower extremity revascularization with right common femoral to BK popliteal artery bypass with ipsilateral nonreversed GSV 11/12/2021
-Femoral artery aneurysm repair 2005
Data Reviewed
-
EKG: Tracing Personally Visualized and interpreted
Medical Tests (Nuc Med, Echo etc): Report Reviewed by me
Labs: Labs Reviewed by me
[2024-07-03 09:08] LABS: Blood Urea Nitrogen 22 mg/dl (9-20); Carbon Dioxide 23 mmol/L (22-30); Chloride 104 mmol/L (98-107); Estimated Creatinine Clearance 43 ml/min; Glucose 104 mg/dl (70-99); HDL Cholesterol 44 mg/dl; LDL Cholesterol, Calculated 27 mg/dl; Potassium 3.9 mmol/L (3.5-5.1); Sodium 140 mmol/L (135-145); Triglyceride 48 mg/dl (10-149); Very Low Density Lipoprotein 9 mg/dl (0-30); eGFR 50.18
[2024-07-03] MEDS: PACERONE 200 MG PO (09:19)
[2024-07-03 12:01] LABS: APTT 65.7 Sec (23.4-35.0)
--- NOTE | 2024-07-03 12:36 | W.PN.UPDATE ---
Update Note
Progress Note Update
ECHO suggests large anterior infarction new since prior echo in 2022.
Discussed with Mariah Sands and Hannah- plan R+L tomorrow (Dr. Pereira)
--- NOTE | 2024-07-03 14:16 | PTCARENOTE ---
Addendum entered by Sarah Murray RN 07/03/24 17:21:
Sinus rhythm frequent PACs and PVCs
Original Note:
Cardizem weaned off. Afib HR 60s at this time. Pt denies chest pain or SOB. Heparin gtt per protocol. Trop 5.[address] Sands.
Pt for rn lab tomorrow.
--- NOTE | 2024-07-03 17:25 | W.CON.NEPH ---
Consultation
-
Date/Time Consultation Requested: 07/03/24 1600
Date/Time Consultation Performed: 07/03/24 1730
Requesting Provider: Dr. De La Cruz
Performing Provider: Dr. Brown
Reason for Consultation: HTN, CKD3a
Medical History
-
Chief Complaint: SOB
History of Present Illness:
This is an 84-year-old gentleman who is known to me who has chronic kidney disease stage IIIa baseline creatinine about 1.5-1.7. He has hypertension previously on a multidrug regimen. He also has gout controlled with allopurinol therapy. As well
as atrial fibrillation controlled with amiodarone therapy. Not long ago he had begun developing lower blood pressures and his lisinopril was discontinued. There was concern that he may require midodrine though he had an ER visit as well as a
subsequent visit that showed his blood pressures had stabilized and he did not require midodrine. This past Tuesday he noted tachycardia which is new for him he then realized that he was also quite short of breath. He tried to take it easy but this
did not improve his symptoms and he ultimately came to the emergency room for evaluation. Here his x-rays showed volume overload and echo showed a significant decrease in ejection fraction from previous. He is for cardiac catheterization tomorrow.
We are asked assist with management of his CKD.
Past Medical History
CKD 3A, peripheral tear disease, carotid stenosis, atrial fibrillation, abdominal aortic aneurysm, reflux, rheumatic fever, heart failure reduced ejection fraction, right femoropopliteal bypass, EVAR, femoral artery aneurysm repair, bilateral
ectropion surgery, hernia repair
Social History
Tobacco: Former Smoker
Alcohol: None
Family History
Family History: Not Pertinent
Allergies / Home Medications
Allergy/AdvReac Type Severity Reaction Status Date / Time
Iodinated Contrast Media Allergy itch/rednes Verified 07/03/24 00:58
[IV Dye, Iodine Containing s
Contrast ]
�Medication �Instructions �Recorded �Confirmed �Type
atorvastatin 40 mg tablet 40 mg PO DAILY High cholesterol 11/10/16 07/03/24 History
allopurinol 100 mg tablet 100 mg PO DAILY Gout 09/08/21 07/03/24 History
coenzyme N49-khfiapx E 100 mg-100 1 cap PO DAILY Supplement 11/12/21 07/03/24 History
unit capsule
aspirin 81 mg tablet,delayed 81 mg PO DAILY ##30 11/24/21 07/03/24 Rx
release (Aspir-Low)
amiodarone 100 mg tablet 100 mg PO Q2D 07/26/22 07/03/24 History
cholecalciferol (vitamin D3) 50 2,000 unit PO DAILY 07/26/22 07/03/24 History
mcg (2,000 unit) tablet (Vitamin
D3)
iron 25 mg PO DAILY 07/26/22 07/03/24 History
lisinopril 10 mg tablet 10 mg PO DAILY 07/26/22 07/03/24 History
pantoprazole 40 mg tablet,delayed 40 mg PO DAILY 07/26/22 07/03/24 History
release
apixaban 5 mg tablet (Eliquis) 2.5 mg PO BID 07/03/24 07/03/24 History
Review of Systems
-
Shortness of breath. No chest pain. No lower extreme edema. No issues with urination. No lightheadedness.
All other systems: Negative unless noted
Physical Exam
Vital Signs
Vital Signs
Temp Pulse Resp BP Pulse Ox
97.5 F 68 19 128/73 94
07/03/24 15:29 07/03/24 16:15 07/03/24 16:15 07/03/24 15:00 07/03/24 15:00
Lab Results
WBC 11.3 10^3/uL (4.8-10.8) H 07/03/24 00:57
RBC 4.76 10^6/uL (4.70-6.10) 07/03/24 00:57
Hgb 13.3 g/dL (13.0-18.0) 07/03/24 00:57
Hct 39.4 % (39.0-52.0) 07/03/24 00:57
Plt Count 185 10^3/uL (130-400) 07/03/24 00:57
Sodium 140 mmol/L (135-145) 07/03/24 06:27
Potassium 3.9 mmol/L (3.5-5.1) 07/03/24 06:27
Chloride 104 mmol/L (98-107) 07/03/24 06:27
Carbon Dioxide 23 mmol/L (22-30) 07/03/24 06:27
BUN 22 mg/dl (9-20) H 07/03/24 06:27
Creatinine 1.4 mg/dL (0.7-1.3) H 07/03/24 06:27
eGFR 50.18 07/03/24 06:27
Glucose 104 mg/dl (70-99) H 07/03/24 06:27
Calcium 9.0 mg/dl (8.4-10.2) 07/03/24 06:27
Jug-C-Xjqwpwnyfdj Pept 08205 pg/ml 07/03/24 02:01
Albumin 3.5 g/dl (3.5-5.0) 07/03/24 00:57
Laboratory Tests
08/17/22
12:34
Creatinine 1.7 H
Physical Exam
Patient is awake alert oriented and in no distress. Mood and affect were pleasant, insight and judgment were good. Pupils are equal round and reactive to light, extraocular movements are intact, sclera were anicteric. Hearing was normal, ears and
nose are intact. Oropharynx was clear. Neck was supple with trachea midline and no thyromegaly. Heart was regular rate and rhythm without rubs. Lower extremities without edema. Lungs were coarse to auscultation bilaterally and with normal
excursion. Abdomen was soft, nontender, with normal active bowel sounds, and no hepatosplenomegaly. Skin was without rash and with normal turgor.
Data Reviewed
-
Labs: Labs Reviewed by me
Old Records: Reviewed
Assessment/Plan
-
Assessment
CKD 3A
Heart failure reduced ejection fraction worse
Hypertension
Atrial fibrillation
GERD
Abnormal troponin
Plan
His baseline creatinine is slightly higher and I suspect that the lower creatinine now may be in part due to his volume overload.
He will be receiving IV contrast as well tomorrow. I would therefore hold Lasix in the morning and add bicarbonate IV fluid prophylaxis. This will be able to limit his volume input to around 800 cc only
Lasix may be resumed thereafter
He had previously been on lisinopril though this was discontinued due to hypotension. He will likely benefit from SGLT2 inhibitor therapy going forward.
Continue rate control with calcium channel spenser
Follow BMP
[2024-07-03 18:09] LABS: APTT 74.2 Sec (23.4-35.0)
[2024-07-03] MEDS: PACERONE 400 MG PO (19:51)
[2024-07-04] VITALS (20 sets, daily range): BP systolic 99–149; BP diastolic 68–134; BMI 21.0
[2024-07-04 00:35] LABS: APTT 60.7 Sec (23.4-35.0)
--- NOTE | 2024-07-04 00:38 | PTCARENOTE ---
Rec'd pt. as transfer from ICU AAOx3, VSS, NSR in the 70's with frequent PVC's on the monitor. Heavy assist to transfer with assist x 1, pt. generally weak. Pt. denied any chest pain, Pulse ox 2L 98%, some SOLIS with transferring from WC to bed
noted. Lungs diminished with fine anterior exertional wheeze noted. Condom catheter present but leaking clear yellow urine, tan care provided and CC changed (#25). Plan of care discussed with pt. and his daughter (NPO for CC in AM);
understanding verbalized. Pt. currently sleeping.
[2024-07-04] MEDS: HEPARIN 25000 UNITS/250 ML IV (02:54)
[2024-07-04 06:26] LABS: Hematocrit 38.3 % (39.0-52.0); Hemoglobin 13.3 g/dL (13.0-18.0); Mean Corp Hgb Conc. 34.7 g/dL (33.0-37.0); Mean Corpuscular Hgb 28.1 pg (27.0-31.0); Mean Corpuscular Volume 80.8 fL (80.0-94.0); Mean Platelet Volume 12.3 fL (7.4-10.4); Platelet Count 192 10^3/uL (130-400); Red Blood Cell Count 4.74 10^6/uL (4.70-6.10); Red Cell Dist. Width 17.2 % (11.5-14.5); White Blood Cell Count 10.1 10^3/uL (4.8-10.8)
[2024-07-04 06:36] LABS: APTT 119.6 Sec (23.4-35.0)
[2024-07-04] MEDS: PROTONIX 40 MG PO (07:46)
[2024-07-04] MEDS: ASPIR LOW (ENTERIC COATED) 81 MG PO (07:46)
[2024-07-04] MEDS: LIPITOR 40 MG PO (07:46)
[2024-07-04] MEDS: ZYLOPRIM 100 MG PO (07:46)
[2024-07-04] MEDS: PACERONE 400 MG PO ×2 (07:46→20:18)
[2024-07-04 07:54] LABS: Blood Urea Nitrogen 29 mg/dl (9-20); Carbon Dioxide 24 mmol/L (22-30); Chloride 102 mmol/L (98-107); Estimated Creatinine Clearance 37 ml/min; Glucose 98 mg/dl (70-99); Potassium 3.9 mmol/L (3.5-5.1); Sodium 138 mmol/L (135-145); eGFR 42.75
[2024-07-04] MEDS: SODIUM BICARBONATE 1150 MEQ IV (08:03)
--- NOTE | 2024-07-04 09:09 | PTCARENOTE ---
Addendum entered by Robert Dumont RN 07/04/24 09:14:
Bicarb started at 0800 at 200ml/hr for one hour, call placed to the lab director and bicarb IV stopped for now
Original Note:
Bicarb started at 0800 at 200ml/hr for one hour and rate decreased to 75ml/hr per order
--- NOTE | 2024-07-04 11:36 | PTCARENOTE ---
Report given to the hot plate plywood press laborer. Bicarb started at 75/hr
--- NOTE | 2024-07-04 11:39 | W.PN.NEPH.PH ---
Today's Communication / Plan
-
cotn bicarb IVF
for [facility] today
Assessment/Plan
-
Assessment
CKD 3A-baseline cr 1.5-1.7
Heart failure reduced ejection fraction
Hypertension
Atrial fibrillation
GERD
Abnormal troponin
Plan
CKD-cr seem stable with in baseline
for [facility] today and preventive bicarb IVF started total 800cc
hold Lasix today, resume by tomorrow
He had previously been on lisinopril though this was discontinued due to hypotension. He will likely benefit from SGLT2 inhibitor therapy going forward.
Continue rate control with calcium channel spenser
Follow BMP
-
-
Date of Service: July 04, 2024
CC / HPI / ROS
-
Chief Complaint:
CKD
History of Present Illness:
cr is up at 1.6 but with in baseline
BP stable, on 2lit of O2
wt is down
Review of Systems:
no cp or sob
npo for procedure
Labs
-
Labs:
WBC 10.1 10^3/uL (4.8-10.8) 07/04/24 06:13
RBC 4.74 10^6/uL (4.70-6.10) 07/04/24 06:13
Hgb 13.3 g/dL (13.0-18.0) 07/04/24 06:13
Hct 38.3 % (39.0-52.0) L 07/04/24 06:13
Plt Count 192 10^3/uL (130-400) 07/04/24 06:13
Sodium 138 mmol/L (135-145) 07/04/24 06:13
Potassium 3.9 mmol/L (3.5-5.1) 07/04/24 06:13
Chloride 102 mmol/L (98-107) 07/04/24 06:13
Carbon Dioxide 24 mmol/L (22-30) 07/04/24 06:13
BUN 29 mg/dl (9-20) H 07/04/24 06:13
Creatinine 1.6 mg/dL (0.7-1.3) H 07/04/24 06:13
eGFR 42.75 07/04/24 06:13
Glucose 98 mg/dl (70-99) 07/04/24 06:13
Calcium 9.0 mg/dl (8.4-10.2) 07/04/24 06:13
Qsw-S-Qsvablalsxu Pept 06567 pg/ml 07/03/24 02:01
Albumin 3.5 g/dl (3.5-5.0) 07/03/24 00:57
Physical Exam
-
Vital Signs:
Vital Signs
Temp Pulse Resp BP Pulse Ox
97.5 F 70 20 128/73 95
07/04/24 11:18 07/04/24 11:16 07/04/24 11:18 07/04/24 11:16 07/04/24 11:18
Cardiovascular:: Regular rate and rhythm
Lung Excursion:: Normal (decreased)
Abdomen:: Nontender and Soft
Extremity Edema:: None: Bilateral:
Benedict Catheter: No
--- NOTE | 2024-07-04 13:41 | ITS.CL.ANGIO ---
Tube Washer - Angioplasty
Angioplasty
Procedure Report:
CARDIAC CATHETERIZATION REPORT
Date of Procedure: 07/04/2024
Referring: Morris Sands M.D.
Indication: Non-ST elevation myocardial infarction, new cardiomyopathy.
PROCEDURE:
1. Right heart catheterization.
2. Left heart catheterization.
3. Coronary angiography.
4. Successful IVUS guided PCI of the proximal LAD.
ACCESS:
6 [place] right radial artery.
5 [place] right antecubital vein.
CATHETERS:
1. 5 [place] balloon wedge.
2. 5 [place] JL 3.5.
3. 5 [place] JR4.
4. 6 [place] EBU 4.0 guiding catheter.
HEMODYNAMIC DATA
Weight (kg): 72.1
AO (s/d/x mmHg): 112/77/94
LV (s/x mmHg): 115/19
PCWP (a/v/x mmHg): 22/22/20
PA (s/d/x mmHg): 36/23/27
RV (s/x mmHg): 36/12
RA (a/v/x mmHg): 18/
SVC SvO2 (%): 63.9
PA SvO2 (%): 56.5
SaO2 (%): 90.0
Hbg (g/dL): 13.4
CO (L/min): 4.06
CI (L/min/m2): 2.08
TPG (mmHg): 7
PVR (Francis Units): 1.72
SVR (dynes*seconds*cm^-5): 1616
AVO2 Diff (Volume %): 6.11
AV gradient (x, mmHg): None
AV area (cm2): Normal.
LEFT VENTRICULOGRAPHY: Not performed.
CORONARY ANGIOGRAPHY
Dominance: Right.
Left Main: Normal size, bifurcating vessel. There is no coronary artery disease.
LAD: Large size vessel giving rise to several small diagonals. There is a critical, 90-95% lesion in the proximal vessel.
Ramus: Congenitally absent.
Circumflex: Large size, nondominant vessel giving rise to 2 obtuse marginals before terminating as a left posterolateral branch. There are minor luminal irregularities in the proximal circumflex. There is a 20% lesion in the proximal margin of
OM1.
RCA: Normal size, dominant vessel with a substantial posterolateral arcade. There is a 30-40% lesion in the proximal RCA.
INTERVENTIONS
1. Successful IVUS guided PCI of the critical, 90-95% lesion in the proximal LAD (Medtronic [place] 3.5 x 38 NAT, postdilated with a 3.5 NC balloon) with reduction in stenosis to 0%, restoring NIKOLAS-3 flow.
Narrative:
The decision was made to proceed with percutaneous coronary intervention. The diagnostic catheter was removed over a wire and a 6Fr EBU 4.0 guiding catheter was advanced to the aortic root and seated in the left main coronary artery. Additional
heparin was given and a Power Turn Flex wire was advanced into the distal LAD. The 90-95% proximal LAD lesion was predilated with a 2.0 x 12 semi-compliant balloon to 12 yamila.
The decision was made to perform intracoronary imaging. An IVUS catheter was advanced through the guiding catheter and into the ostium of the artery. Ring down was performed once the imaging crystal was no longer inside of the guiding catheter. The
IVUS catheter was advanced into the proximal LAD, but would not cross the culprit lesion in spite of prior predilation. Intravascular ultrasound was performed in a retrograde fashion using a slow pullback. Intracoronary imaging demonstrated
significant lesion throughout the proximal LAD but not involving the left main.
The IVUS catheter was removed and a 3.0 x 20 noncompliant balloon was advanced. The entire diseased proximal LAD segment was dilated to 12 yamila. There was good balloon expansion with every inflation. We also took this opportunity to use the
balloon to estimate lesion length for stent selection. The non-compliant balloon was removed and a Medtronic Jae [place] 3.5 x 38 drug-eluting stent was advanced. The stent was deployed at 12 atmospheres. The stent balloon was removed.
IVUS was repeated, this time showing excellent stent apposition with generally good expansion. There were some minor areas of stent underexpansion in the proximal and mid stent.
The IVUS catheter was withdrawn and a 3.5 x 15 noncompliant balloon was advanced into the stent. The distal stent was postdilated to 15 atmospheres. The proximal and mid stent were postdilated to 18 yamila. The noncompliant balloon was withdrawn.
Angiography was performed in orthogonal views, confirming good stent expansion and an excellent angiographic result. The coronary wire was withdrawn and the guide was disengaged from the artery. The catheter was removed over a standard J-wire.
Closure Device: Vascular band.
Radiation dose (mGy): 837.70
DAP (cm2.Gy): 50.7624
Fluoroscopy time (minutes): 11.0
Sedation time (minutes): 40
CONCLUSIONS:
1. Right dominant circulation with a 30-40% lesion in the proximal RCA, a 20% lesion in the proximal margin of OM1 and a critical, 90-95% lesion in the proximal LAD, status post successful IVUS guided PCI (Medtronic [place] 3.5 x 38 NAT,
postdilated with a 3.5 NC balloon) with reduction of stenosis to 0%, restoring NIKOLAS-3 flow.
2. Atrial fibrillation with marginal ventricular control.
3. Moderately elevated filling pressures (LVEDP = 19 mmHg, PCWP = 20 mmHg at 72.1 kg).
RECOMMENDATIONS:
1. Expectant management after cardiac catheterization via right radial approach.
2. Limited weight bearing on the right wrist for one week.
3. Antithrombotic therapy with clopidogrel and apixaban. Please discontinue aspirin.
4. Aggressive secondary risk factor modification.
5. Guideline directed medical therapy as hemodynamics will tolerate.
6. Repeat echocardiogram in 3 months.
7. Referral to cardiac rehab.
Copy to: Morris Sands M.D., Ron Cazares DCooper.
Axel Pereira DO, [facility], FACP
--- NOTE | 2024-07-04 14:19 | CM ---
Chart reviewed. Patient is independent of ADLS, lives with his in a 1 STH in a 55+ Longterm Community, 0 JUDD, ambulates with a SPC. Patient is not current with VN, but is interested and has used [facility] in the past. Referral
placed. Plan is for the patient to return home with VN. CM to follow
--- NOTE | 2024-07-04 14:20 | PTCARENOTE ---
Patient reviewed from the laboratory courier awake and alert. Right radial band intact, right brachial dressing CDI, VSS, A-FIB hr 90-110, family at bedside
--- NOTE | 2024-07-04 14:21 | PTCARENOTE ---
resumed bicarb for a total of 6 hours per order
--- NOTE | 2024-07-04 15:14 | CM ---
Addendum entered by Elif Cross RN 07/05/24 13:38:
Patient is agreeable to cost. I placed a free 30 day coupon for Farxiga in his red discharge folder
Original Note:
Pricing on Jardiance 10mg daily at [facility], ID # [id number] is $150 for a 30 day supply
Farxiga 10mg daily for a 30 day supply is $143
--- NOTE | 2024-07-04 15:32 | W.PN.HOSP.TC ---
Today's Communication/Plan
-
GDMT for acute infarct
stop asa, cont plavix and eliquis
Assessment / Plan
Assessment / Plan
pt is an 84 year old male
ACS/AMI ?---Patient with ST-T changes on EKG concerning for active ischemia and initial troponin in the ED of 4.23--apprec cards--cath with successful stenting of a 90-95% LAD lesion, restarted eliquis-- ECHO showed drop in EF which prompted
cath--cont plavix, stop asa--Follow for any new / worsening symptoms-- troponin peaked at 6.5
Acute HF -systolic, reduced EF- Suspect HFrEF due to AMI/ischemia as noted above - Pulm edema by exam and CXR - no prior h/o same- BNP = 23k- Continue IV Lasix BID and follow I/Os, daily weights, etc.
Paroxysmal Atrial Fibrillation with Rapid Ventricular response- Patient in sinus rhythm with PACs on arrival - now in A-Fib with RVR-- IV Cardizem gtt started in the ED - titrate as needed for rate control-- restart Eliquis
CKD III--creat about baseline--apprec renal consult--bicarb drip for renal protection--lisinopril on hold
GERD/PUD - Prior h/o GI bleeding on DAPT following PAD procedure - Continue daily PPI - Monitor for any signs / symptoms of blood loss.
DVT Prophylaxis: On IV Heparin
Code Status: Full
Anticipated Discharge: > 48 hours
Subjective/Interval History
-
Date of Service: July 04, 2024
pt just returned from labels molder
Objective Data
-
Labs:
Laboratory Results
07/04/24 07/04/24
06:13 12:45
WBC 10.1
Hgb 13.3
Hct 38.3 L
Plt Count 192
APTT 119.6 H Pending
Sodium 138
Potassium 3.9
Chloride 102
Carbon Dioxide 24
BUN 29 H
Creatinine 1.6 H
Glucose 98
Calcium 9.0
Vital Signs:
max temp for 24 hours
07/04/24
07:52
Temp 98.4 F
Vital Signs
Temp Pulse Resp BP Pulse Ox
97.8 F 70 18 128/73 94
07/04/24 14:48 07/04/24 11:16 07/04/24 14:48 07/04/24 11:16 07/04/24 14:48
I&O
07/03/24 07/04/24 07/05/24
06:59 06:59 06:59
Intake Total 355 / 355 200 / 200
Output Total 1000 / 1000 1200 / 1200 550 / 550
Balance -1000 / -1000 -845 / -845 -350 / -350
Review of Systems
-
All other systems: Reviewed and negative
Physical Exam
-
General: Well Developed, Well Nourished and No Apparent Distress
HEENT: Normocephalic and Atraumatic
Respiratory: Clear to Auscultation; Negative Wheezes or Rhonchi
Cardiac: Regular Rhythm and S1/S2; Negative Murmur
GI: Soft, Nontender, Nondistended and Normal Bowel Sounds
Musculoskeletal: No Clubbing, No Cyanosis and No Edema
Neuro: Awake
[2024-07-04 15:55] LABS: ACT-LR - POC > 397 Seconds (116-155)
--- NOTE | 2024-07-04 17:41 | PTCARENOTE ---
right radial band removed at 1730, small amount of bleeding after removing the band;manual pressure applied for 30 minutes, covered with a dry sterile dressing applied
[2024-07-04] MEDS: ELIQUIS 2.5 MG PO (20:17)
[2024-07-05] VITALS (9 sets, daily range): BP systolic 84–112; BP diastolic 48–70; BMI 21.4
--- NOTE | 2024-07-05 01:28 | PTCARENOTE ---
Pt converted from Afib to NSR with PVC and frequent runs of bigeminy. Pt asymptomatic and denies pain or discomfort.
[2024-07-05 05:12] LABS: % Basophils 0.6 % (0-2); % Eosinophils 3.7 % (0-6); % Immature Granulocytes 0.6 % (0-0.5); % Monocytes 11.4 % (1.7-9.3); % Neutrophils 77.7 % (42.2-75.2); Absolute Basophils 0.1 10^3/uL (0-0.2); Absolute Eosinophils 0.5 10^3/uL (0-0.7); Absolute Immature Granulocytes 0.1 10^3/uL (0-0.05); Absolute Lymphocytes 0.7 10^3/uL (1.2-3.4); Absolute Monocytes 1.4 10^3/uL (0.1-0.6); Absolute Neutrophils 9.4 10^3/uL (1.4-6.5); Hematocrit 38.6 % (39.0-52.0); Hemoglobin 13.2 g/dL (13.0-18.0); Mean Corp Hgb Conc. 34.2 g/dL (33.0-37.0); Mean Corpuscular Hgb 27.8 pg (27.0-31.0); Mean Corpuscular Volume 81.4 fL (80.0-94.0); Nucleated Red Blood Cells % 0 % (-); Platelet Count 191 10^3/uL (130-400); Red Blood Cell Count 4.74 10^6/uL (4.70-6.10); Red Cell Dist. Width 16.9 % (11.5-14.5); White Blood Cell Count 12.1 10^3/uL (4.8-10.8)
[2024-07-05 05:30] LABS: Blood Urea Nitrogen 29 mg/dl (9-20); Calcium 8.1 mg/dl (8.4-10.2); Carbon Dioxide 27 mmol/L (22-30); Chloride 100 mmol/L (98-107); Estimated Creatinine Clearance 39 ml/min; Glucose 75 mg/dl (70-99); Potassium 3.7 mmol/L (3.5-5.1); Sodium 138 mmol/L (135-145); eGFR 46.19
--- NOTE | 2024-07-05 07:45 | W.PN.CD ---
Today's Communication / Plan
-
Start metoprolol succinate 50 mg daily.
Down titrate diltiazem gtt and then discontinue.
Start dapagliflozin 10 mg daily.
Monitor renal and heart rate response.
Discharge planning, hopefully tomorrow.
Impression / Plan
-
Impression/Plan: 84 y/o male with PAF, HLD, HTN and AAA s/p EVAR admitted with rapid AF and found to have new cardiomyopathy and NSTEMI.
#CAD/NSTEMI
-Acute, new diagnosis.
-Cardiac catheterization revealed a critical, 90-95% lesion in the LAD s/p successful IVUS guided PCI (Medtronic Jae Cl[place] 3.5 x 38 NAT, post dilated with 3.5 NCB).
-Antithrombotic therapy with clopidogrel and apixaban.
-Aggressive secondary prevention with high dose, high potency statin.
-Continue amiodarone.
-Start metoprolol 50 mg PO daily.
#Paroxysmal Atrial fibrillation
-Borderline ventricular respones.
-Rate/rhythm control with amiodarone, now increased to 400 mg BID and diltiazem gtt.
-CHADSVASC - 6(age greater than 75, CVA/TIA, hypertension, PAD)
-Therapeutic anticoagulation with apixaban 2.5 mg BID.
-Start metoprolol 50 mg PO daily and discontinue diltiazem gtt in light of ischemic cardiomyopathy/HFrEF.
-Rate control is still not adequate. Monitor change in HR with transition to metoprolol.
#Ischemic Cardiomyopathy
-New diagnosis.
-LVEF = 25-30% with LAD wall motion abnormality and corresponding CAD s/p PCI.
-LVEDP = 19 mmHg at cath, likely appropriate for depressed systolic function.
-Change furosemide to 40 mg PO PRN weight gain of 1-3 lbs/24 hours, 3-5 lbs/week.
-GDMT as hemodynamics will tolerate.
-Start metoprolol succinate 50 mg daily and d/c diltiazem gtt.
-Start dapagliflozin 10 mg daily.
-Monitor renal function and BP prior to initiating sacubitril-valsartan; possibly tomorrow.
#JAY
-Acute, possibly with a chronic component.
-Baseline creatinine around 1.3.
-Creatinine today is 1.5 (possibly within the margin of error).
-Monitor with recent contrast exposure and addition of SGLT2i.
#PAD
-Chronic, stable.
-AAA s/p EVAR, 2011.
-Right lower extremity revascularization with right common femoral to BK popliteal artery bypass with ipsilateral nonreversed GSV, 11/12/2021.
-Femoral artery aneurysm repair, 2005.
-High dose, high potency statin.
#HLD
-Chronic, stable.
-Total cholesterol = 80, LDL = 27, HDL = 44, Triglycerides = 48.
-Continue atorvastatin 40 mg daily.
Subjective/Interval History:
PCI for 90-95% pLAD lesion yesterday.
Intermittently changing between AF/NSR. Rate in AF is ~100 bpm.
SGLT2i ~ $143-150/month.
Weight is up 1.3 kg (73.5 <-- 72.2 kg).
DATA:
TTE, 07/03/2024:
CONCLUSIONS
1. Mild to moderate LVH with anteroseptal and apical akinesis with severe
anterolateral hypokinesis with EF 25-30%.
2. MAC with mild mitral regurgitation.
3. Aortic sclerosis without stenosis.
4. Mild pulmonary hypertension with PA systolic pressure 40-45 mmHg.
5. Compared with the prior study from 2022, there is now extensive wall motion
abnormality consistent with interval anterior infarction. Additionally,
pulmonary hypertension is now present.
Cardiac Catheterization/PCI, 07/04/2024:
CONCLUSIONS:
1. Right dominant circulation with a 30-40% lesion in the proximal RCA, a 20% lesion in the proximal margin of OM1 and a critical, 90-95% lesion in the proximal LAD, status post successful IVUS guided PCI (Medtronic Jae Clinch 3.5 x 38 NAT,
postdilated with a 3.5 NC balloon) with reduction of stenosis to 0%, restoring NIKOLAS-3 flow.
2. Atrial fibrillation with marginal ventricular control.
3. Moderately elevated filling pressures (LVEDP = 19 mmHg, PCWP = 20 mmHg at 72.1 kg).
Physical Exam
Vital Signs/Labs
Vital Signs
Temp Pulse Resp BP Pulse Ox
36.6 C 104 18 108/70 94
07/05/24 04:01 07/05/24 06:00 07/05/24 04:01 07/05/24 04:00 07/05/24 04:01
07/03/24 07/04/24 07/05/24
11:59 11:59 11:59
Actual Weight 75.3 kg 72.2 kg 73.5 kg
07/05/24 04:13
07/05/24 04:13
APTT Cancelled 07/04/24 21:24
Triglycerides 48 mg/dl (10-149) 07/03/24 06:27
LDL Cholesterol, Calc 27 mg/dl 07/03/24 06:27
VLDL Cholesterol, Calc 9 mg/dl (0-30) 07/03/24 06:27
HDL Cholesterol 44 mg/dl 07/03/24 06:27
07/03/24
02:01
Yhd-F-Qgruaucwssb Pept 10687
LAB Results
07/03/24 07/03/24 07/03/24
02:01 03:56 05:00
Troponin I 4.230 H* 3.410 H* Cancelled
07/03/24 07/03/24 07/03/24
06:27 11:38 17:48
Troponin I 3.690 H* 5.920 H* D 6.510 H*
07/04/24
00:14
Troponin I 5.430 H*
Physical Exam
Constitutional: No acute distress and Comfortable
EENT: Anicteric and Moist mucous membranes
Cardiovascular: Pedal edema is absent, JVD pressure is normal, Rhythm/rate is irregular, S1S2 is normal and Murmur/rub/gallop absent
Respiratory: Respiratory effort normal, Lungs clear to auscul., Wheeze Absent, Crackles Absent and Rhonchi Absent
GI: Soft, Distention absent, Flat, Non tender and Normal bowel sounds
Neuro/Psych: AO x 3
Other: Cath Site (Right radial access site is C/D/I.)
Data Reviewed
-
Date of Service: July 05, 2024
Medical Decision Making: Reviewed Test Results, Independent Historian Assessment and Test Interpretation
EKG: Tracing Personally Visualized and interpreted and Report Reviewed by me
Echo: Tracing Personally Visualized and interpreted and Report Reviewed by me
X-Ray/CT/US/MRI/NUC/PET: Image Personally Visualized and interpreted, Report Reviewed by me, Discussed with Physician and Discussed with Patient
Medical Tests (PFT, Pathology etc): Image Personally Visualized and interpreted, Report Reviewed by me, Discussed with Physician, Discussed with Patient and Discussed with Family
Labs: Labs Reviewed by me
Old Records: Reviewed
--- NOTE | 2024-07-05 08:52 | W.CARD.POSTP ---
Post PCI Follow Up
Procedure
Procedure/Date: 07/04/2024 Successful IVUS guided PCI of the critical, 90-95% lesion in the proximal LAD (Medtronic Jae [place] 3.5 x 38 NAT, postdilated with a 3.5 NC balloon) with reduction in stenosis to 0%, restoring NIKOLAS-3 flow.
Subjective: no cp, sob
Site
Site: Radial: Right and No ht/bleeding, distal pulses palpable
Tele / EKG
SR with occ PVC's
Labs
07/05/24 04:13
07/05/24 04:13
APTT Cancelled 07/04/24 21:24
Triglycerides 48 mg/dl (10-149) 07/03/24 06:27
LDL Cholesterol, Calc 27 mg/dl 07/03/24 06:27
VLDL Cholesterol, Calc 9 mg/dl (0-30) 07/03/24 06:27
HDL Cholesterol 44 mg/dl 07/03/24 06:27
07/03/24
02:01
Bmn-I-Iatadjddjwu Pept 20082
DAPT Medication
DAPT Medication: Clopidogrel 75 mg daily (and Eliquis 2.5mg bid, STOP Aspirin)
Plan
Post PCI LAD, plan to stop ASA resumed Eliquis last evening, new to Plavix
Cardiac rehab c/s
Converted to SR last evening
f/u Dr. Sands 07/11 2pm
[2024-07-05] MEDS: TOPROL XL 50 MG PO (10:08)
[2024-07-05] MEDS: ZYLOPRIM 100 MG PO (10:09)
[2024-07-05] MEDS: LIPITOR 40 MG PO (10:09)
[2024-07-05] MEDS: PLAVIX 75 MG PO (10:09)
[2024-07-05] MEDS: PROTONIX 40 MG PO (10:09)
[2024-07-05] MEDS: PACERONE 400 MG PO ×2 (10:09→19:42)
[2024-07-05] MEDS: ELIQUIS 2.5 MG PO ×2 (10:10→19:42)
[2024-07-05] MEDS: FARXIGA 10 MG PO (10:11)
--- NOTE | 2024-07-05 11:45 | PN.CDI ---
CDI
- -
CDI:
Physician Documentation Request
Admit Date: 07/03/24 04:11
Dear Rachael Campos
Please review the following and provide your response in the progress notes.
Clinical Indicators:
The diagnosis of atrial flutter was included in the signed EKG 07/03 0600.
Please indicate in your progress notes if you are in agreement that the above diagnosis is valid for this patient:
____ - Atrial flutter is a valid diagnosis (Please include type typical, atypical , other )
____ - Atrial fluter is not a valid diagnosis for this patient
____ - Other
Use of terms such as suspected, likely, concern for, or probable are acceptable for a diagnosis that is being evaluated, monitored or treated as if it exists and can be coded in the inpatient setting, when documented at the time of discharge.
Thank you,
Lelia Menchaca RN, BSN
CDI Specialist
tiger text
Please use your independent medical judgment in providing your response.
--- NOTE | 2024-07-05 12:13 | W.PN.NEPH.PH ---
Today's Communication / Plan
-
follow labs
Assessment/Plan
-
Assessment
CKD 3A-baseline cr 1.5-1.7
Heart failure reduced ejection fraction
Hypertension
Atrial fibrillation
GERD
Abnormal troponin
Plan
CKD-cr seem stable with in baseline
s/p LAD stent 07/04, follow labs in am
LVEDP was 19, PCWP was 20, felt appropriate per cards with low EF
ok lasix prn basis
GDMT initiated by cards- Sunny added, changed CCB to BB
need close monitoring of labs with above, noted plan of ENtresto
d/w pt
upon d/c f/u Dr Brown
-
-
Date of Service: July 05, 2024
CC / HPI / ROS
-
Chief Complaint:
CKD
History of Present Illness:
cr is up at 1.5 with in baseline
BP stable, on RA
wt is slightly up
Review of Systems:
no cp or sob
feels well
Labs
-
Labs:
WBC 12.1 10^3/uL (4.8-10.8) H 07/05/24 04:13
RBC 4.74 10^6/uL (4.70-6.10) 07/05/24 04:13
Hgb 13.2 g/dL (13.0-18.0) 07/05/24 04:13
Hct 38.6 % (39.0-52.0) L 07/05/24 04:13
Plt Count 191 10^3/uL (130-400) 07/05/24 04:13
Sodium 138 mmol/L (135-145) 07/05/24 04:13
Potassium 3.7 mmol/L (3.5-5.1) 07/05/24 04:13
Chloride 100 mmol/L (98-107) 07/05/24 04:13
Carbon Dioxide 27 mmol/L (22-30) 07/05/24 04:13
BUN 29 mg/dl (9-20) H 07/05/24 04:13
Creatinine 1.5 mg/dL (0.7-1.3) H 07/05/24 04:13
eGFR 46.19 07/05/24 04:13
Glucose 75 mg/dl (70-99) 07/05/24 04:13
Calcium 8.1 mg/dl (8.4-10.2) L 07/05/24 04:13
Vux-Z-Jvrvndnmcqm Pept 51453 pg/ml 07/03/24 02:01
Albumin 3.5 g/dl (3.5-5.0) 07/03/24 00:57
Physical Exam
-
Vital Signs:
Vital Signs
Temp Pulse Resp BP Pulse Ox
98.4 F 79 20 112/61 92
07/05/24 08:11 07/05/24 08:11 07/05/24 08:11 07/05/24 10:08 07/05/24 09:50
Cardiovascular:: Regular rate and rhythm
Respiratory:: Bilateral: CTA
Lung Excursion:: Normal
Abdomen:: Nontender and Soft
Extremity Edema:: None: Bilateral:
Benedict Catheter: No
--- NOTE | 2024-07-05 13:39 | CM ---
Chart reviewed. Patient is independent of ADLS, lives with his in a 1 STH in a 55+ Shelter Community, 0 JUDD, ambulates with a SPC. Referral placed to [facility]. Plan is for the patient to return home with VN. CM to follow
[2024-07-05 15:14] LABS: Magnesium 1.8 mg/dl (1.6-2.3); Phosphorus 3.6 mg/dl (2.5-4.5)
--- NOTE | 2024-07-05 15:53 | W.PN.HOSP.TC ---
Today's Communication/Plan
-
DC planning
Assessment / Plan
Assessment / Plan
pt is an 84 year old male
ACS/AMI ---Patient with ST-T changes on EKG concerning for active ischemia and initial troponin in the ED of 4.23--apprec cards--cath with successful stenting of a 90-95% LAD lesion, restarted eliquis-- ECHO showed drop in EF which prompted
cath--cont plavix, stop asa--Follow for any new / worsening symptoms-- troponin peaked at 6.5. Asymptomatic today.
Acute HF -systolic, reduced EF- Suspect HFrEF due to AMI/ischemia as noted above - Pulm edema by exam and CXR - no prior h/o same- BNP = 23k- Continue IV Lasix BID and follow I/Os, daily weights, etc.
Paroxysmal Atrial Fibrillation with Rapid Ventricular response- Patient in sinus rhythm with PACs on arrival -off of Cardizem gtt -on beta-spenser now-- restart Eliquis
CKD III--creat about baseline--apprec renal consult--bicarb drip for renal protection--lisinopril on hold. Creatinine stable.
GERD/PUD - Prior h/o GI bleeding on DAPT following PAD procedure - Continue daily PPI - Monitor for any signs / symptoms of blood loss.
DVT Prophylaxis: On IV Heparin
Code Status: Full
Cardiology input noted from today-if stable DC home tomorrow
Anticipated Discharge: Within 24 hours
Subjective/Interval History
-
Date of Service: July 05, 2024
Denies any chest pain or shortness of breath. Voicing no specific complaints.
Objective Data
-
Labs:
Laboratory Results
07/05/24
04:13
WBC 12.1 H
Hgb 13.2
Hct 38.6 L
Plt Count 191
Sodium 138
Potassium 3.7
Chloride 100
Carbon Dioxide 27
BUN 29 H
Creatinine 1.5 H
Glucose 75
Calcium 8.1 L
Vital Signs:
Vital Signs
Temp Pulse Resp BP Pulse Ox
97.6 F 68 20 90/48 97
07/05/24 12:48 07/05/24 13:00 07/05/24 12:48 07/05/24 12:56 07/05/24 12:48
I&O
07/04/24 07/05/24 07/06/24
06:59 06:59 06:59
Intake Total 355 / 355 900 / 900 300 / 300
Output Total 1200 / 1200 550 / 550
Balance -845 / -845 350 / 350 300 / 300
Review of Systems
-
Constitutional: Denies Fever
Abdomen/GI: Denies Abdominal Pain, Nausea or Vomiting
Neuro: Denies Dizzy
Physical Exam
-
General: No Apparent Distress
HEENT: Moist Mucous Membranes
Respiratory: Clear to Auscultation
Cardiac: Regular Rhythm and S1/S2
GI: Soft, Nontender, Nondistended and Normal Bowel Sounds
Neuro: AO x 3
Psych: Calm
Data Reviewed
-
Labs: Labs Reviewed by me
[2024-07-05] MEDS: MAGNESIUM SULFATE 100 IV (16:14)
--- NOTE | 2024-07-05 19:09 | PTCARENOTE ---
Pt OOB to chair all day, he denies any discomfort. Telemetry shows sinus rhythm with frequent PVC's, some bigeminy, pt being loaded with amiodarone. ECG with prolonged QTc reported to , magnesium given IV .
[2024-07-06] VITALS (7 sets, daily range): BP systolic 93–126; BP diastolic 59–75; BMI 21.7
--- NOTE | 2024-07-06 05:26 | PTCARENOTE ---
Pt c/o SOB, 88% on RA, fine crackles B/L. O2 3L applied and placed in sitting position. Pt stated his symptoms improved with PlOx 95%
--- NOTE | 2024-07-06 07:58 | W.PN.HOSP.TC ---
Today's Communication/Plan
-
Repeat chest x-ray because of hypoxia
Agree with Lasix
Would get a BMP prior to initiating Entresto especially with IV diuresis and fluctuating creatinine
Assessment / Plan
Assessment / Plan
pt is an 84 year old male presented with shortness of breath
CVS: S1-S2 normal
Chest: CTA B/L
Abdomen: Soft, NT / Bowel sounds present
Extremities: No edema, normal pulses
DERMATOLOGIST AND DERMATOPATHOLOGIST: Non focal exam
# Acute hypoxic respiratory insufficiency-on 3 L of oxygen since last night
Repeat chest x-ray
#ACS/AMI -Patient with ST-T changes on EKG concerning for active ischemia and initial troponin in the ED of 4.23, peaked at 6.5
ECHO showed drop in EF which prompted cath
Cath with successful stenting of a 90-95% LAD lesion,
Restarted Eliquis
Cont Plavix, Off asa, statin, metoprolol
#Acute HF with reduced EF
Suspect HFrEF due to AMI/ischemia as noted above
Pulm edema by exam and CXR - no prior h/o same
BNP = 23k
Lasix placed on hold
Continue beta-spenser, Farxiga started
Entresto to be initiated-after BMP today
#Paroxysmal Atrial Fibrillation with Rapid Ventricular response- Patient in sinus rhythm with PACs on arrival -off of Cardizem gtt -on beta-spenser now
Restarted Eliquis, amiodarone, metoprolol
#CKD III--creat about baseline
S/P bicarb drip for renal protection
Lisinopril on hold.
#GERD/PUD - Prior h/o GI bleeding on DAPT following PAD procedure - Continue daily PPI
#Gout-continue allopurinol
# Peripheral artery disease-history of AAA status post endovascular aneurysm repair 2011
History of right common femoral artery to popliteal artery bypass with ipsilateral nonreversed GSV 11/12/2021
Femoral artery aneurysm repair 2005
Continue Plavix and statin
# Hyperlipidemia-continue statin
# History of TIA 2015
# Ex-smoker
#DVT Prophylaxis: Eliquis
#Code Status: Full
Part of this note was created using voice recognition system. Occasional wrong word or��sound alike� substitutions may have inadvertently occurred due to the inherent limitations of voice recognition software. If noted kindly bring it to my
attention for correction.
D/W RN at bed side
D/w Cards at bed side
Anticipated Discharge: Within 24 hours
Subjective/Interval History
-
Date of Service: July 06, 2024
Objective Data
-
Vital Signs:
Vital Signs
Temp Pulse Resp BP Pulse Ox
97.7 F 60 14 120/74 95
07/06/24 07:00 07/06/24 07:35 07/06/24 07:00 07/06/24 07:35 07/06/24 07:00
I&O
07/05/24 07/06/24 07/07/24
06:59 06:59 06:59
Intake Total 900 / 900 400 / 400
Output Total 550 / 550
Balance 350 / 350 400 / 400
--- NOTE | 2024-07-06 08:25 | W.PN.CD ---
Addendum entered and electronically signed by Axel Pereira DO 07/10/24 07:35:
Response to CDI: Paroxysmal atrial flutter confirmed on EKG.
Original Note:
Today's Communication / Plan
-
Furosemide 40 mg IV x1.
Furosemide 40 mg PO daily, first dose this afternoon.
Start sacubitril/vasartan 24/26 mg BID.
Monitor renal function.
Impression / Plan
-
Impression/Plan: 84 y/o male with PAF, HLD, HTN and AAA s/p EVAR admitted with rapid AF and found to have new cardiomyopathy and NSTEMI.
#CAD/NSTEMI
-Acute, new diagnosis.
-Cardiac catheterization revealed a critical, 90-95% lesion in the LAD s/p successful IVUS guided PCI (Medtronic Jae Gaston 3.5 x 38 NAT, post dilated with 3.5 NCB).
-Antithrombotic therapy with clopidogrel and apixaban.
-Aggressive secondary prevention with high dose, high potency statin.
-Continue amiodarone and metoprolol 50 mg daily.
#Paroxysmal Atrial fibrillation
-Borderline ventricular respones.
-Rate/rhythm control with amiodarone and metoprolol. QTc prolonged from amiodarone. Magnesium replaced.
-CHADSVASC - 6(age greater than 75, CVA/TIA, hypertension, PAD)
-Therapeutic anticoagulation with apixaban 2.5 mg BID.
#Ischemic Cardiomyopathy/HFrEF
-New diagnosis.
-LVEF = 25-30% with LAD wall motion abnormality and corresponding CAD s/p PCI.
-LVEDP = 19 mmHg at cath, likely appropriate for depressed systolic function.
-Weight is up 2.4 kg.
-GDMT as hemodynamics will tolerate.
-Continue metoprolol, dapagliflozin.
-Start sacubitril/valsartan.
-Start furosemide 40 mg IV x1 now, 40 mg PO daily (first dose this afternoon).
#JAY
-Acute, possibly with a chronic component.
-Baseline creatinine around 1.3.
-Creatinine today is 1.5 (possibly within the margin of error).
-Monitor with recent contrast exposure and addition of SGLT2i and now ARNi.
#PAD
-Chronic, stable.
-AAA s/p EVAR, 2011.
-Right lower extremity revascularization with right common femoral to BK popliteal artery bypass with ipsilateral nonreversed GSV, 11/12/2021.
-Femoral artery aneurysm repair, 2005.
-High dose, high potency statin.
#HLD
-Chronic, stable.
-Total cholesterol = 80, LDL = 27, HDL = 44, Triglycerides = 48.
-Continue atorvastatin 40 mg daily.
Subjective/Interval History:
Patient complained of SOB this morning. SaO2 88% on RA and supplemental oxygen applied.
Weight is up 2.4 kg.
HR better controlled on metoprolol.
QTc prolonged on EKG, likely related to amiodarone use.
Mg 1.8 yesterday, replaced.
DATA:
TTE, 07/03/2024:
CONCLUSIONS
1. Mild to moderate LVH with anteroseptal and apical akinesis with severe
anterolateral hypokinesis with EF 25-30%.
2. MAC with mild mitral regurgitation.
3. Aortic sclerosis without stenosis.
4. Mild pulmonary hypertension with PA systolic pressure 40-45 mmHg.
5. Compared with the prior study from 2022, there is now extensive wall motion
abnormality consistent with interval anterior infarction. Additionally,
pulmonary hypertension is now present.
Cardiac Catheterization/PCI, 07/04/2024:
CONCLUSIONS:
1. Right dominant circulation with a 30-40% lesion in the proximal RCA, a 20% lesion in the proximal margin of OM1 and a critical, 90-95% lesion in the proximal LAD, status post successful IVUS guided PCI (Medtronic [place] G[place] 3.5 x 38 NAT,
postdilated with a 3.5 NC balloon) with reduction of stenosis to 0%, restoring NIKOLAS-3 flow.
2. Atrial fibrillation with marginal ventricular control.
3. Moderately elevated filling pressures (LVEDP = 19 mmHg, PCWP = 20 mmHg at 72.1 kg).
Physical Exam
Vital Signs/Labs
Vital Signs
Temp Pulse Resp BP Pulse Ox
36.5 C 60 14 120/74 95
07/06/24 07:00 07/06/24 07:35 07/06/24 07:00 07/06/24 07:35 07/06/24 07:00
07/04/24 07/05/24 07/06/24
11:59 11:59 11:59
Actual Weight 72.2 kg 73.5 kg 74.6 kg
07/05/24 04:13
07/05/24 04:13
APTT Cancelled 07/04/24 21:24
Magnesium Cancelled 07/05/24 14:06
Triglycerides 48 mg/dl (10-149) 07/03/24 06:27
LDL Cholesterol, Calc 27 mg/dl 07/03/24 06:27
VLDL Cholesterol, Calc 9 mg/dl (0-30) 07/03/24 06:27
HDL Cholesterol 44 mg/dl 07/03/24 06:27
07/03/24
02:01
Uqr-T-Enwdmcylile Pept 30480
LAB Results
07/03/24 07/03/24 07/04/24
11:38 17:48 00:14
Troponin I 5.920 H* D 6.510 H* 5.430 H*
Physical Exam
Constitutional: No acute distress and Comfortable
EENT: Anicteric and Moist mucous membranes
Cardiovascular: Rhythm & rate is regular, Pedal edema is absent, JVD pressure is normal, S1S2 is normal and Murmur/rub/gallop absent
Respiratory: Respiratory effort normal, Wheeze Absent, Rhonchi Absent and Crackles Present
GI: Soft, Distention absent, Flat, Non tender and Normal bowel sounds
Neuro/Psych: AO x 3
Other: Cath Site (Right radial access site is C/D/I.)
Data Reviewed
-
Date of Service: July 06, 2024
Medical Decision Making: Reviewed Test Results, Independent Historian Assessment and Test Interpretation
EKG: Tracing Personally Visualized and interpreted and Report Reviewed by me
Echo: Tracing Personally Visualized and interpreted and Report Reviewed by me
X-Ray/CT/US/MRI/NUC/PET: Image Personally Visualized and interpreted and Report Reviewed by me
Medical Tests (PFT, Pathology etc): Image Personally Visualized and interpreted and Report Reviewed by me
Labs: Labs Reviewed by me
Old Records: Reviewed
[2024-07-06] MEDS: PACERONE 400 MG PO ×2 (09:04→20:51)
[2024-07-06] MEDS: PLAVIX 75 MG PO (09:05)
[2024-07-06] MEDS: PROTONIX 40 MG PO (09:05)
[2024-07-06] MEDS: TOPROL XL 50 MG PO (09:05)
[2024-07-06] MEDS: LIPITOR 40 MG PO (09:05)
[2024-07-06] MEDS: ZYLOPRIM 100 MG PO (09:05)
[2024-07-06] MEDS: ELIQUIS 2.5 MG PO ×2 (09:05→20:51)
[2024-07-06] MEDS: FARXIGA 10 MG PO (09:05)
--- NOTE | 2024-07-06 09:43 | PN.CDI ---
CDI
- -
CDI:
Physician Documentation Request
Admit Date: 07/03/24 04:[address] Pereira,
Please review the following and provide your response in the progress notes.
Clinical Indicators:
The diagnosis of atrial flutter was included in the signed EKG 07/03 0600.
Please indicate in your progress notes if you are in agreement that the above diagnosis is valid for this patient:
____ - Atrial flutter is a valid diagnosis (Please include type typical, atypical , other )
____ - Atrial fluter is not a valid diagnosis for this patient
____ - Other
Use of terms such as suspected, likely, concern for, or probable are acceptable for a diagnosis that is being evaluated, monitored or treated as if it exists and can be coded in the inpatient setting, when documented at the time of discharge.
Thank you,
Lelia Menchaca RN, BSN
CDI Specialist
tiger text
Please use your independent medical judgment in providing your response.
[2024-07-06] MEDS: LASIX 40 MG IV (10:12)
--- NOTE | 2024-07-06 10:51 | W.PN.NEPH.PH ---
Today's Communication / Plan
-
labs
Assessment/Plan
-
Assessment
CKD 3A-baseline cr 1.5-1.7
Heart failure reduced ejection fraction
Hypertension
Atrial fibrillation
GERD
Abnormal troponin
Plan
follow BMP
today is POD contrast
also just started farxiga as well
watch BP once entresto starts
-
-
Date of Service: July 06, 2024
CC / HPI / ROS
-
Chief Complaint:
CKD
History of Present Illness:
cr is up at 1.5 yesterday
no labs this am
BP stable, on RA
Review of Systems:
no cp
sob this am, now on supplemental O2
Labs
-
Labs:
WBC 12.1 10^3/uL (4.8-10.8) H 07/05/24 04:13
RBC 4.74 10^6/uL (4.70-6.10) 07/05/24 04:13
Hgb 13.2 g/dL (13.0-18.0) 07/05/24 04:13
Hct 38.6 % (39.0-52.0) L 07/05/24 04:13
Plt Count 191 10^3/uL (130-400) 07/05/24 04:13
eGFR 46.19 07/05/24 04:13
Phosphorus Cancelled 07/05/24 14:06
Hcd-K-Fmrmnqwrgaw Pept 25581 pg/ml 07/03/24 02:01
Albumin 3.5 g/dl (3.5-5.0) 07/03/24 00:57
Physical Exam
-
Vital Signs:
Vital Signs
Temp Pulse Resp BP Pulse Ox
97.7 F 60 14 120/74 95
07/06/24 07:00 07/06/24 07:35 07/06/24 07:00 07/06/24 07:35 07/06/24 08:58
Cardiovascular:: Regular rate and rhythm
Respiratory:: Bilateral: Coarse
Lung Excursion:: Normal
Abdomen:: Nontender and Soft
Bowel Sounds:: Normal
Extremity Edema:: None: Bilateral:
[2024-07-06 12:08] LABS: Blood Urea Nitrogen 38 mg/dl (9-20); Calcium 8.5 mg/dl (8.4-10.2); Carbon Dioxide 30 mmol/L (22-30); Chloride 95 mmol/L (98-107); Estimated Creatinine Clearance 32 ml/min; Glucose 127 mg/dl (70-99); Sodium 135 mmol/L (135-145); eGFR 34.79
--- NOTE | 2024-07-06 13:16 | CM ---
Pricing on Entresto 24-26mg BID through the patients prescription plan is $169 for a 30 day supply. Patient is agreeable to cost. I placed a free 30 day coupon in the patients red discharge folder.
--- NOTE | 2024-07-06 13:24 | CM ---
Chart reviewed. Patient is independent of ADLS, lives with his in a [address] in a [facility], 0 JUDD, ambulates with a SPC. Referral placed to [facility]. Plan is for the patient to return home with VN. CM to follow
[2024-07-06] MEDS: LASIX 40 MG PO (14:37)
--- NOTE | 2024-07-06 17:24 | PTCARENOTE ---
Pt diuresed well after lasix, back on room air at 93%, he denies SOB currently. Plan to start entresto tonight, pt aware of symptoms of low BP. Telemetry shows sinus rhythm at a rate of 50's to 60's.
[2024-07-06] MEDS: ENTRESTO 24 MG/26 MG 1 TAB PO (20:50)
--- NOTE | 2024-07-06 22:00 | PTCARENOTE ---
pt pleasant and cooperative. first entresto dose given. medication and side effects explained to pt. p states understanding.will observe.
[2024-07-07] VITALS (7 sets, daily range): BP systolic 95–103; BP diastolic 51–62; BMI 21.3
[2024-07-07 04:54] LABS: Hematocrit 37.5 % (39.0-52.0); Hemoglobin 12.9 g/dL (13.0-18.0); Mean Corp Hgb Conc. 34.4 g/dL (33.0-37.0); Mean Corpuscular Hgb 28.7 pg (27.0-31.0); Mean Corpuscular Volume 83.3 fL (80.0-94.0); Mean Platelet Volume 11.9 fL (7.4-10.4); Platelet Count 181 10^3/uL (130-400); Red Cell Dist. Width 16.4 % (11.5-14.5); White Blood Cell Count 9.8 10^3/uL (4.8-10.8)
[2024-07-07 05:19] LABS: Blood Urea Nitrogen 40 mg/dl (9-20); Calcium 8.1 mg/dl (8.4-10.2); Carbon Dioxide 27 mmol/L (22-30); Chloride 97 mmol/L (98-107); Estimated Creatinine Clearance 29 ml/min; Glucose 88 mg/dl (70-99); Potassium 3.5 mmol/L (3.5-5.1); Sodium 137 mmol/L (135-145); eGFR 30.85
--- NOTE | 2024-07-07 07:47 | W.PN.CD ---
Today's Communication / Plan
-
Overall patient appears well and is comfortable he had some borderline sats last night 88 to 90% so he was placed on 2 L
-Try to wean O2 off
patient received additional Lasix yesterday IV
Creatinine is rising to 2.1. Hold diuretic and hold Entresto
Impression / Plan
-
Impression/Plan: 84 y/o male with PAF, HLD, HTN and AAA s/p EVAR admitted with rapid AF and found to have new cardiomyopathy and NSTEMI.
#CAD/NSTEMI
-Acute, new diagnosis.
-Cardiac catheterization revealed a critical, 90-95% lesion in the LAD s/p successful IVUS guided PCI (Medtronic [place] Mccurtain 3.5 x 38 NAT, post dilated with 3.5 NCB).
-Antithrombotic therapy with clopidogrel and apixaban.
-Aggressive secondary prevention with high dose, high potency statin.
-Continue amiodarone and metoprolol 50 mg daily.
-Plan is for apixaban and Plavix
#Paroxysmal Atrial fibrillation
-Rate/rhythm control with amiodarone and metoprolol. QTc prolonged from amiodarone. Magnesium replaced.
-CHADSVASC - 6(age greater than 75, CVA/TIA, hypertension, PAD)
-Therapeutic anticoagulation with apixaban 2.5 mg BID.
#Ischemic Cardiomyopathy/HFrEF
-New diagnosis.
-LVEF = 25-30% with LAD wall motion abnormality and corresponding CAD s/p PCI.
-LVEDP = 19 mmHg at cath, likely appropriate for depressed systolic function.
-Weight is up 2.4 kg.
-GDMT as hemodynamics will tolerate.
-Continue metoprolol, dapagliflozin.
-Started sacubitril/valsartan. Creatinine rising will hold
-Hold diuretic and hold Entresto. Creatinine is rising. Note patient was on lisinopril prior to admission.
#JAY
-Acute, possibly with a chronic component.
-Baseline creatinine around 1.3.
-Creatinine has risen to 2.3 patient received additional diuretic. Hold diuretic and hold Entresto
#PAD
-Chronic, stable.
-AAA s/p EVAR, 2011.
-Right lower extremity revascularization with right common femoral to BK popliteal artery bypass with ipsilateral nonreversed GSV, 11/12/2021.
-Femoral artery aneurysm repair, 2005.
-High dose, high potency statin.
#HLD
-Chronic, stable.
-Total cholesterol = 80, LDL = 27, HDL = 44, Triglycerides = 48.
-Continue atorvastatin 40 mg daily.
Subjective/Interval History:
Patient complained of SOB this morning. SaO2 88% on RA and supplemental oxygen applied.
Weight is up 2.4 kg.
HR better controlled on metoprolol.
QTc prolonged on EKG, likely related to amiodarone use.
Mg 1.8 yesterday, replaced.
DATA:
TTE, 07/03/2024:
CONCLUSIONS
1. Mild to moderate LVH with anteroseptal and apical akinesis with severe
anterolateral hypokinesis with EF 25-30%.
2. MAC with mild mitral regurgitation.
3. Aortic sclerosis without stenosis.
4. Mild pulmonary hypertension with PA systolic pressure 40-45 mmHg.
5. Compared with the prior study from 2022, there is now extensive wall motion
abnormality consistent with interval anterior infarction. Additionally,
pulmonary hypertension is now present.
Cardiac Catheterization/PCI, 07/04/2024:
CONCLUSIONS:
1. Right dominant circulation with a 30-40% lesion in the proximal RCA, a 20% lesion in the proximal margin of OM1 and a critical, 90-95% lesion in the proximal LAD, status post successful IVUS guided PCI (Medtronic Jae Mccurtain 3.5 x 38 NAT,
postdilated with a 3.5 NC balloon) with reduction of stenosis to 0%, restoring NIKOLAS-3 flow.
2. Atrial fibrillation with marginal ventricular control.
3. Moderately elevated filling pressures (LVEDP = 19 mmHg, PCWP = 20 mmHg at 72.1 kg).
Physical Exam
Vital Signs/Labs
Vital Signs
Temp Pulse Resp BP Pulse Ox
98.3 F 56 18 103/59 85
07/07/24 07:31 07/07/24 07:34 07/07/24 07:31 07/07/24 07:34 07/07/24 07:34
07/06/24 07/07/24 07/08/24
06:59 06:59 06:59
Actual Weight 74.6 kg
07/07/24 03:56
07/07/24 03:56
APTT Cancelled 07/04/24 21:24
Magnesium Cancelled 07/05/24 14:06
Triglycerides 48 mg/dl (10-149) 07/03/24 06:27
LDL Cholesterol, Calc 27 mg/dl 07/03/24 06:27
VLDL Cholesterol, Calc 9 mg/dl (0-30) 07/03/24 06:27
HDL Cholesterol 44 mg/dl 07/03/24 06:27
07/03/24
02:01
Uug-L-Fcnprwtcyyo Pept [id number]
Physical Exam
Respiratory: Lungs clear to auscul.
GI: Soft and Non tender
Neuro/Psych: Alert, Oriented and AO x 3
Other: Skin
Data Reviewed
-
Date of Service: July 07, 2024
[2024-07-07] MEDS: ELIQUIS 2.5 MG PO ×2 (08:38→20:10)
[2024-07-07] MEDS: PROTONIX 40 MG PO (08:39)
[2024-07-07] MEDS: PACERONE 400 MG PO (08:39)
[2024-07-07] MEDS: TOPROL XL 50 MG PO (08:40)
[2024-07-07] MEDS: LIPITOR 40 MG PO (08:40)
[2024-07-07] MEDS: ZYLOPRIM 100 MG PO (08:40)
[2024-07-07] MEDS: FARXIGA PO (08:41)
[2024-07-07] MEDS: PLAVIX 75 MG PO (08:41)
--- NOTE | 2024-07-07 09:02 | W.PN.NEPH.PH ---
Today's Communication / Plan
-
Hold Entresto, Farxiga
Assessment/Plan
-
Assessment
CKD 3A-baseline cr 1.5-1.7
Heart failure reduced ejection fraction
Hypertension
Atrial fibrillation
GERD
Abnormal troponin
Plan
follow BMP
Creatinine is rising, this is iron combination with recent contrast, addition of Farxiga and now addition of Entresto.
Hopefully most of this is contrast related, but we will need to hold both Farxiga and Entresto
-
-
Date of Service: July 07, 2024
CC / HPI / ROS
-
Chief Complaint:
CKD
History of Present Illness:
cr is up at 2.1
Hemoglobin stable 12.9
BP stable, on RA
Review of Systems:
no cp
Remains on supplemental oxygen, mild shortness of breath
Labs
-
Labs:
WBC 9.8 10^3/uL (4.8-10.8) 07/07/24 03:56
RBC 4.50 10^6/uL (4.70-6.10) L 07/07/24 03:56
Hgb 12.9 g/dL (13.0-18.0) L 07/07/24 03:56
Hct 37.5 % (39.0-52.0) L 07/07/24 03:56
Plt Count 181 10^3/uL (130-400) 07/07/24 03:56
Sodium 137 mmol/L (135-145) 07/07/24 03:56
Potassium 3.5 mmol/L (3.5-5.1) 07/07/24 03:56
Chloride 97 mmol/L (98-107) L 07/07/24 03:56
Carbon Dioxide 27 mmol/L (22-30) 08/31/24 03:56
BUN 40 mg/dl (9-20) H 07/07/24 03:56
Creatinine 2.1 mg/dL (0.7-1.3) H 07/07/24 03:56
eGFR 30.85 07/07/24 03:56
Glucose 88 mg/dl (70-99) 07/07/24 03:56
Calcium 8.1 mg/dl (8.4-10.2) L 07/07/24 03:56
Phosphorus Cancelled 07/05/24 14:06
Qrd-V-Tqlujrdhmpw Pept 70825 pg/ml 07/03/24 02:01
Albumin 3.5 g/dl (3.5-5.0) 07/03/24 00:57
Physical Exam
-
Vital Signs:
Vital Signs
Temp Pulse Resp BP Pulse Ox
98.3 F 56 18 103/59 85
07/07/24 07:31 07/07/24 07:34 07/07/24 07:31 07/07/24 07:34 07/07/24 07:34
Cardiovascular:: Regular rate and rhythm
Respiratory:: Bilateral: Coarse
Lung Excursion:: Normal
Abdomen:: Nontender and Soft
Bowel Sounds:: Normal
Extremity Edema:: None: Bilateral:
--- NOTE | 2024-07-07 09:45 | PTCARENOTE ---
Assumed care of pt from night RN. Pt received awake and alert, Ox3. VSS, CM shows SB 60's, POX 92% on RA. Farxiga and Entresto on hold per CARDS. Right radial and femoral dsg remains CDI with good CMS. He denies pain or discomfort at this time.
Ambulating with assist to BR.
--- NOTE | 2024-07-07 09:50 | W.PN.HOSP.TC ---
Today's Communication/Plan
-
Hold Entresto, Lasix, Farxiga
Follow creatinine
Add doxycycline
Add incentive spirometry
wean O2 as tolerated.
Assessment / Plan
Assessment / Plan
pt is an 84 year old male presented with shortness of breath
CVS: S1-S2 normal
Chest: CTA B/L
Abdomen: Soft, NT / Bowel sounds present
Extremities: No edema, normal pulses
ENVIRONMENTAL RESOURCE SPECIALIST: Non focal exam
# Acute hypoxic respiratory insufficiency-chest x-ray noted and reviewed by me-infiltrates
Add incentive spirometry
Trial of 5 days of doxycycline
# COVID-19 infection end of May 2024
#JAY CKD III
S/P bicarb drip for renal protection
Elevation in creatinine likely a combination of Lasix, Jardiance and Entresto
Hold All above
#ACS/AMI -Patient with ST-T changes on EKG concerning for active ischemia and initial troponin in the ED of 4.23, peaked at 6.5
ECHO showed drop in EF which prompted cath
Cath with successful stenting of a 90-95% LAD lesion,
Restarted Eliquis
Cont Plavix, Off asa, statin, metoprolol
#Acute HF with reduced EF
Suspect HFrEF due to AMI/ischemia as noted above
Pulm edema by exam and CXR - no prior h/o same
BNP - 23k
Lasix placed on hold
Continue beta-spenser, Farxiga and Entresto placed on hold
#Paroxysmal Atrial Fibrillation with Rapid Ventricular response-
Patient in sinus rhythm with PACs on arrival -off of Cardizem gtt -on beta-spenser now
Restarted Eliquis, amiodarone, metoprolol
#GERD/PUD - Prior h/o GI bleeding on DAPT following PAD procedure - Continue daily PPI
#Gout-continue allopurinol
# Peripheral artery disease-history of AAA status post endovascular aneurysm repair 2011
History of right common femoral artery to popliteal artery bypass with ipsilateral nonreversed GSV 11/12/2021
Femoral artery aneurysm repair 2005
Continue Plavix and statin
# Hyperlipidemia-continue statin
# History of TIA 2015
# Ex-smoker
#DVT Prophylaxis: Eliquis
#Code Status: Full
Part of this note was created using voice recognition system. Occasional wrong word or��sound alike� substitutions may have inadvertently occurred due to the inherent limitations of voice recognition software. If noted kindly bring it to my
attention for correction.
D/W RN at bed side
Anticipated Discharge: 24 - 48 hours
Subjective/Interval History
-
Date of Service: July 07, 2024
Objective Data
-
Labs:
Laboratory Results
07/07/24
03:56
WBC 9.8
Hgb 12.9 L
Hct 37.5 L
Plt Count 181
Sodium 137
Potassium 3.5
Chloride 97 L
Carbon Dioxide 27
BUN 40 H
Creatinine 2.1 H
Glucose 88
Calcium 8.1 L
Vital Signs:
Vital Signs
Temp Pulse Resp BP Pulse Ox
98.3 F 56 18 103/59 92
07/07/24 07:31 07/07/24 07:34 07/07/24 07:31 07/07/24 07:34 07/07/24 09:34
I&O
07/06/24 07/07/24 07/08/24
06:59 06:59 06:59
Intake Total 400 / 400 180 / 180
Balance 400 / 400 180 / 180
[2024-07-07] MEDS: VIBRAMYCIN 100 MG PO ×2 (10:41→20:10)
--- NOTE | 2024-07-07 11:42 | PTOTSP ---
ST Dysphagia Eval
Oropharyngeal function appears intact at the bedside
Pt received awake/alert sitting upright in chair. Only complaint that he doesn't really like the hospital food 'tolerable'. Self fed regular solids demo functional mastication and bolus was orally cleared. Thin liquids by straw serial sips swallow
appears timely. No overt s/sx of aspiration observed.
1. Continue current diet regular solids/thin liquids
2. Meds per pt preference and RN discretion
3. No further ST services indicated
[2024-07-07] MEDS: PACERONE PO (21:15)
--- NOTE | 2024-07-08 02:05 | PTCARENOTE ---
Pt. sinus shirley on the monitor tonight, mostly low 50's, even with activity. Other VSS, pt. asymptomatic. Dr. Sands notified, order to hold 2000 dose amiodarone obtained. Dose held, pt.'s HR since ranging 48-52 while sleeping.
[2024-07-08 02:47] VITALS: BMI 21.6
[2024-07-08 02:50] VITALS: BP 116/57
[2024-07-08 03:34] LABS: Blood Urea Nitrogen 47 mg/dl (9-20); Carbon Dioxide 26 mmol/L (22-30); Chloride 99 mmol/L (98-107); Estimated Creatinine Clearance 29 ml/min; Glucose 99 mg/dl (70-99); Potassium 3.7 mmol/L (3.5-5.1); Sodium 136 mmol/L (135-145); eGFR 30.85
[2024-07-08 07:43] VITALS: BP 94/51
--- NOTE | 2024-07-08 08:37 | W.PN.NEPH.PH ---
Today's Communication / Plan
-
Follow BMP
Assessment/Plan
-
Assessment
CKD 3A-baseline cr 1.5-1.7
Heart failure reduced ejection fraction
Hypertension
Atrial fibrillation
GERD
Abnormal troponin
Plan
Creatinine unchanged at 2.1 (likely plateauing following contrast administration)
follow BMP
JAY combination with recent contrast, addition of Farxiga and now addition of Entresto.
Hopefully most of this is contrast related, but we will need to hold both Farxiga and Entresto
-
-
Date of Service: July 08, 2024
CC / HPI / ROS
-
Chief Complaint:
CKD
History of Present Illness:
cr is unchanged 2.1
Hemoglobin stable 12.9
BP stable, on RA
Review of Systems:
no cp
Remains on supplemental oxygen, mild shortness of breath
Weights up
Urine output not recorded
Labs
-
Labs:
WBC 9.8 10^3/uL (4.8-10.8) 07/07/24 03:56
RBC 4.50 10^6/uL (4.70-6.10) L 07/07/24 03:56
Hgb 12.9 g/dL (13.0-18.0) L 07/07/24 03:56
Hct 37.5 % (39.0-52.0) L 07/07/24 03:56
Plt Count 181 10^3/uL (130-400) 07/07/24 03:56
Sodium 136 mmol/L (135-145) 07/08/24 03:00
Potassium 3.7 mmol/L (3.5-5.1) 07/08/24 03:00
Chloride 99 mmol/L (98-107) 07/08/24 03:00
Carbon Dioxide 26 mmol/L (22-30) 07/08/24 03:00
BUN 47 mg/dl (9-20) H 07/08/24 03:00
Creatinine 2.1 mg/dL (0.7-1.3) H 07/08/24 03:00
eGFR 30.85 07/08/24 03:00
Glucose 99 mg/dl (70-99) 07/08/24 03:00
Calcium 8.0 mg/dl (8.4-10.2) L 07/08/24 03:00
Phosphorus Cancelled 07/05/24 14:06
Mey-L-Udlwacwwttv Pept 61505 pg/ml 07/03/24 02:01
Albumin 3.5 g/dl (3.5-5.0) 07/03/24 00:57
Physical Exam
-
Vital Signs:
Vital Signs
Temp Pulse Resp BP Pulse Ox
97.6 F 52 20 116/57 97
07/08/24 07:40 07/08/24 03:00 07/08/24 07:40 07/08/24 02:50 07/08/24 07:40
Cardiovascular:: Regular rate and rhythm
Respiratory:: Bilateral: Coarse
Lung Excursion:: Normal
Abdomen:: Nontender and Soft
Bowel Sounds:: Normal
Extremity Edema:: None: Bilateral:
Benedict Catheter: No
[2024-07-08] MEDS: ELIQUIS 2.5 MG PO ×2 (08:40→20:07)
[2024-07-08] MEDS: VIBRAMYCIN 100 MG PO ×2 (08:40→20:07)
[2024-07-08] MEDS: PLAVIX 75 MG PO (08:40)
[2024-07-08] MEDS: LIPITOR 40 MG PO (08:41)
[2024-07-08] MEDS: TOPROL XL 50 MG PO (08:41)
[2024-07-08] MEDS: ZYLOPRIM 100 MG PO (08:42)
[2024-07-08] MEDS: PROTONIX 40 MG PO (08:42)
[2024-07-08 09:29] VITALS: BMI 21.6
--- NOTE | 2024-07-08 09:36 | PTCARENOTE ---
Assumed care of pt from night RN. Pt received awake and alert, Ox3. VSs, CM shows SB 50's, POX 95% on RA. BUN and Creat still elevated. Right radial and brachial sites HYDRO STATION OPERATOR with normal CMS throughout limb. Pt denies any pain or discomfort.
--- NOTE | 2024-07-08 09:46 | W.PN.CD ---
Today's Communication / Plan
-
Creatinine 2.1. Creatinine has remained 2.1 on 07/07/2024 and 07/08/2024. Hopefully it will start trending down. Entresto was stopped and Lasix held. Blood pressure is also relatively low so backing off on Toprol-XL
Bradycardia. Backing off on Toprol-XL and amiodarone.
Impression / Plan
-
Impression/Plan: 84 y/o male with PAF, HLD, HTN and AAA s/p EVAR admitted with rapid AF and found to have new cardiomyopathy and NSTEMI.
#CAD/NSTEMI
-Acute, new diagnosis.
-Cardiac catheterization revealed a critical, 90-95% lesion in the LAD s/p successful IVUS guided PCI (Medtronic Jae Adams 3.5 x 38 NAT, post dilated with 3.5 NCB).
-Antithrombotic therapy with clopidogrel and apixaban.
-Aggressive secondary prevention with high dose, high potency statin.
-Continue amiodarone and metoprolol 50 mg daily.
-Plan is for apixaban and Plavix
#Paroxysmal Atrial fibrillation
-Rate/rhythm control with amiodarone and metoprolol. QTc prolonged from amiodarone. Magnesium replaced.
-CHADSVASC - 6(age greater than 75, CVA/TIA, hypertension, PAD)
-Therapeutic anticoagulation with apixaban 2.5 mg BID.
#Ischemic Cardiomyopathy/HFrEF
-New diagnosis.
-LVEF = 25-30% with LAD wall motion abnormality and corresponding CAD s/p PCI.
-LVEDP = 19 mmHg at cath, likely appropriate for depressed systolic function.
-Weight is up 2.4 kg.
-GDMT as hemodynamics will tolerate.
-Continue metoprolol, dapagliflozin.
-Started sacubitril/valsartan. Creatinine rising will hold
-Hold diuretic and hold Entresto. Creatinine is rising. Note patient was on lisinopril prior to admission.
#JAY
-Acute, possibly with a chronic component.
-Baseline creatinine around 1.3.
-Creatinine has risen to 2.1 patient received additional diuretic. Hold diuretic and hold Entresto
-
#PAD
-Chronic, stable.
-AAA s/p EVAR, 2011.
-Right lower extremity revascularization with right common femoral to BK popliteal artery bypass with ipsilateral nonreversed GSV, 11/12/2021.
-Femoral artery aneurysm repair, 2005.
-High dose, high potency statin.
#HLD
-Chronic, stable.
-Total cholesterol = 80, LDL = 27, HDL = 44, Triglycerides = 48.
-Continue atorvastatin 40 mg daily.
Subjective/Interval History:
Patient complained of SOB this morning. SaO2 88% on RA and supplemental oxygen applied.
Weight is up 2.4 kg.
HR better controlled on metoprolol.
QTc prolonged on EKG, likely related to amiodarone use.
Mg 1.8 yesterday, replaced.
DATA:
TTE, 07/03/2024:
CONCLUSIONS
1. Mild to moderate LVH with anteroseptal and apical akinesis with severe
anterolateral hypokinesis with EF 25-30%.
2. MAC with mild mitral regurgitation.
3. Aortic sclerosis without stenosis.
4. Mild pulmonary hypertension with PA systolic pressure 40-45 mmHg.
5. Compared with the prior study from 2022, there is now extensive wall motion
abnormality consistent with interval anterior infarction. Additionally,
pulmonary hypertension is now present.
Cardiac Catheterization/PCI, 07/04/2024:
CONCLUSIONS:
1. Right dominant circulation with a 30-40% lesion in the proximal RCA, a 20% lesion in the proximal margin of OM1 and a critical, 90-95% lesion in the proximal LAD, status post successful IVUS guided PCI (Medtronic Jae Adams 3.5 x 38 NAT,
postdilated with a 3.5 NC balloon) with reduction of stenosis to 0%, restoring NIKOLAS-3 flow.
2. Atrial fibrillation with marginal ventricular control.
3. Moderately elevated filling pressures (LVEDP = 19 mmHg, PCWP = 20 mmHg at 72.1 kg).
Physical Exam
Vital Signs/Labs
Vital Signs
Temp Pulse Resp BP Pulse Ox
97.6 F 55 20 94/51 95
07/08/24 07:40 07/08/24 08:00 07/08/24 07:40 07/08/24 07:43 07/08/24 09:29
07/07/24 07/08/24 07/09/24
06:59 06:59 06:59
Actual Weight 73.3 kg 74.4 kg
07/07/24 03:56
07/08/24 03:00
APTT Cancelled 07/04/24 21:24
Magnesium Cancelled 07/05/24 14:06
Triglycerides 48 mg/dl (10-149) 07/03/24 06:27
LDL Cholesterol, Calc 27 mg/dl 07/03/24 06:27
VLDL Cholesterol, Calc 9 mg/dl (0-30) 07/03/24 06:27
HDL Cholesterol 44 mg/dl 07/03/24 06:27
07/03/24
02:01
Fgo-E-Fncqtsestsf Pept [id number]
Physical Exam
Constitutional: No acute distress
Cardiovascular: Rhythm & rate is regular
Respiratory: Respiratory effort normal
GI: Soft
Neuro/Psych: Alert and AO x 3
Data Reviewed
-
Date of Service: July 08, 2024
Medical Decision Making: Reviewed Test Results
Medical Tests (PFT, Pathology etc): Report Reviewed by me
Labs: Labs Reviewed by me
[2024-07-08] MEDS: PACERONE 200 MG PO ×2 (10:02→20:06)
[2024-07-08] MEDS: PACERONE PO (10:03)
--- NOTE | 2024-07-08 11:17 | W.PN.HOSP.TC ---
Today's Communication/Plan
-
Hold Lasix,Farxiga,Entresto and watch creat
Assessment / Plan
Assessment / Plan
Pt is an 84 year old male presented with shortness of breath
CVS: S1-S2 normal
Chest: CTA B/L
Abdomen: Soft, NT / Bowel sounds present
Extremities: No edema
LOGISTICS SOLUTION MANAGER: Non focal exam
# Acute hypoxic respiratory insufficiency-chest x-ray noted and reviewed by me-infiltrates
Added incentive spirometry
5 days of doxycycline
# COVID-19 infection end of May 2024
# JAY CKD III
S/P bicarb drip for renal protection
Elevation in creatinine likely a combination of Lasix, Jardiance and Entresto
Hold All above
# ACS/AMI -Patient with ST-T changes on EKG concerning for active ischemia and initial troponin in the ED of 4.23, peaked at 6.5
ECHO showed drop in EF which prompted cath
Cath with successful stenting of a 90-95% LAD lesion,
Restarted Eliquis
Cont Plavix, Off asa, statin, metoprolol
# Acute HF with reduced EF
Suspect HFrEF due to AMI/ischemia as noted above
Pulm edema by exam and CXR - no prior h/o same
BNP - 23k
Lasix placed on hold
Continue beta-spenser, Farxiga and Entresto placed on hold
# Paroxysmal Atrial Fibrillation with Rapid Ventricular response-
Patient in sinus rhythm with PACs on arrival -off of Cardizem gtt -on beta-spenser now
Restarted Eliquis, amiodarone, metoprolol
# GERD/PUD - Prior h/o GI bleeding on DAPT following PAD procedure - Continue daily PPI
# Gout-continue allopurinol
# Peripheral artery disease-history of AAA status post endovascular aneurysm repair 2011
History of right common femoral artery to popliteal artery bypass with ipsilateral nonreversed GSV 11/12/2021
Femoral artery aneurysm repair 2005
Continue Plavix and statin
# Hyperlipidemia-continue statin
# History of TIA 2015
# Ex-smoker
# DVT Prophylaxis: Eliquis
# Code Status: Full
Left a message for .
D/W RN at bed side.
Part of this note was created using voice recognition system. Occasional wrong word or��sound alike� substitutions may have inadvertently occurred due to the inherent limitations of voice recognition software. If noted kindly bring it to my
attention for correction.
Anticipated Discharge: 24 - 48 hours
Subjective/Interval History
-
Date of Service: July 08, 2024
Objective Data
-
Labs:
Laboratory Results
07/08/24 07/08/24
03:00 10:00
WBC Pending
Hgb Pending
Hct Pending
Plt Count Pending
Sodium 136
Potassium 3.7
Chloride 99
Carbon Dioxide 26
BUN 47 H
Creatinine 2.1 H
Glucose 99
Calcium 8.0 L
Vital Signs:
Vital Signs
Temp Pulse Resp BP Pulse Ox
97.6 F 55 20 94/51 95
07/08/24 07:40 07/08/24 08:00 07/08/24 07:40 07/08/24 07:43 07/08/24 09:29
I&O
07/07/24 07/08/24 07/09/24
06:59 06:59 06:59
Intake Total 180 / 180 480 / 480
Balance 180 / 180 480 / 480
[2024-07-08 11:52] VITALS: BP 104/56
[2024-07-08 12:27] LABS: % Basophils 0.5 % (0-2); % Immature Granulocytes 0.7 % (0-0.5); % Lymphocytes 7.3 % (20.5-51.1); % Monocytes 11.8 % (1.7-9.3); % Neutrophils 75.7 % (42.2-75.2); Absolute Basophils 0.1 10^3/uL (0-0.2); Absolute Eosinophils 0.4 10^3/uL (0-0.7); Absolute Immature Granulocytes 0.1 10^3/uL (0-0.05); Absolute Lymphocytes 0.8 10^3/uL (1.2-3.4); Absolute Monocytes 1.2 10^3/uL (0.1-0.6); Absolute Neutrophils 7.8 10^3/uL (1.4-6.5); Hematocrit 38.9 % (39.0-52.0); Hemoglobin 12.8 g/dL (13.0-18.0); Mean Corp Hgb Conc. 32.9 g/dL (33.0-37.0); Mean Corpuscular Hgb 28.3 pg (27.0-31.0); Mean Corpuscular Volume 85.9 fL (80.0-94.0); Mean Platelet Volume 11.7 fL (7.4-10.4); Nucleated Red Blood Cells % 0 % (-); Platelet Count 223 10^3/uL (130-400); Red Blood Cell Count 4.53 10^6/uL (4.70-6.10); Red Cell Dist. Width 16.7 % (11.5-14.5); White Blood Cell Count 10.2 10^3/uL (4.8-10.8)
[2024-07-08 15:39] VITALS: BP 98/47
--- NOTE | 2024-07-08 16:26 | PTCARENOTE ---
received pt from ongoing rn. pt is sb on the monitor, hr in the 50s, vss. pt offers no complaints at this time. pt educated on plan of care and pt verbalized understanding. pt ambulating halls and tolerating well. call holland within reach.
[2024-07-08 18:49] VITALS: BP 102/50
[2024-07-08 20:41] VITALS: BMI 21.6
--- NOTE | 2024-07-08 21:20 | PTCARENOTE ---
received to at change of shift seated in the chair. Pt ambulating the room without assistance and the RW. POC discussed pt verbalized understanding. SR/SB with PVCs on the monitor.
[2024-07-08 22:16] VITALS: BP 109/63
[2024-07-09] VITALS (7 sets, daily range): BP systolic 106–125; BP diastolic 51–60; PULSE 51; BMI 21.7
[2024-07-09 04:27] LABS: Hematocrit 35.8 % (39.0-52.0); Hemoglobin 12.2 g/dL (13.0-18.0); Mean Corp Hgb Conc. 34.1 g/dL (33.0-37.0); Mean Corpuscular Hgb 28.4 pg (27.0-31.0); Mean Corpuscular Volume 83.4 fL (80.0-94.0); Mean Platelet Volume 11.4 fL (7.4-10.4); Platelet Count 219 10^3/uL (130-400); Red Blood Cell Count 4.29 10^6/uL (4.70-6.10); Red Cell Dist. Width 16.1 % (11.5-14.5); White Blood Cell Count 9.4 10^3/uL (4.8-10.8)
[2024-07-09 04:56] LABS: Blood Urea Nitrogen 48 mg/dl (9-20); Calcium 8.1 mg/dl (8.4-10.2); Carbon Dioxide 27 mmol/L (22-30); Chloride 99 mmol/L (98-107); Estimated Creatinine Clearance 32 ml/min; Glucose 91 mg/dl (70-99); Potassium 4.1 mmol/L (3.5-5.1); Sodium 136 mmol/L (135-145); eGFR 34.79
--- NOTE | 2024-07-09 08:59 | W.PN.HOSP.TC ---
Today's Communication/Plan
-
Check Cr in am
DC planning depending on Cr
Assessment / Plan
Assessment / Plan
Pt is an 84 year old male presented with shortness of breath
# Acute hypoxic respiratory insufficiency-chest x-ray shows Slightly increased bilateral ill-defined opacities most prominent in the right upper lung and left lower lung which could represent pneumonia/pneumonitis.
Added incentive spirometry
5 days of doxycycline
# COVID-19 infection end of May 2024
# JAY CKD III
S/P bicarb drip for renal protection
Elevation in creatinine likely a combination of Lasix, Jardiance and Entresto
Hold All above
Improving Cr
# ACS/AMI -Patient with ST-T changes on EKG concerning for active ischemia and initial troponin in the ED of 4.23, peaked at 6.5
ECHO showed drop in EF which prompted cath
Cath with successful stenting of a 90-95% LAD lesion,
Restarted Eliquis
Cont Plavix, Off asa, statin, metoprolol
# Acute HF with reduced EF
Suspect HFrEF due to AMI/ischemia as noted above
Pulm edema by exam and CXR - no prior h/o same
BNP - 23k
Lasix placed on hold
Continue beta-spenser, Farxiga and Entresto placed on hold
# Paroxysmal Atrial Fibrillation with Rapid Ventricular response-
Patient in sinus rhythm with PACs on arrival -off of Cardizem gtt -on beta-spenser now
Restarted Eliquis, amiodarone, metoprolol
# GERD/PUD - Prior h/o GI bleeding on DAPT following PAD procedure - Continue daily PPI
# Gout-continue allopurinol
# Peripheral artery disease-history of AAA status post endovascular aneurysm repair 2011
History of right common femoral artery to popliteal artery bypass with ipsilateral nonreversed GSV 11/12/2021
Femoral artery aneurysm repair 2005
Continue Plavix and statin
# Hyperlipidemia-continue statin
# History of TIA 2016
# Ex-smoker
# DVT Prophylaxis: Eliquis
# Code Status: Full
Left a message for .
D/W RN at bed side.
Part of this note was created using voice recognition system. Occasional wrong word or��sound alike� substitutions may have inadvertently occurred due to the inherent limitations of voice recognition software. If noted kindly bring it to my
attention for correction.
Anticipated Discharge: 24 - 48 hours
Subjective/Interval History
-
Date of Service: July 09, 2024
Voicing no specific complaint.
Last night he needed oxygen during sleep. He does not have history of obstructive sleep apnea or oxygenation issues.
He denies shortness of breath. This morning he had cough and there was some streak of blood and is not sure if it is because of the oxygen he was wearing last night.
No fever or chills.
Objective Data
-
Labs:
Laboratory Results
07/09/24
03:55
WBC 9.4
Hgb 12.2 L
Hct 35.8 L
Plt Count 219
Sodium 136
Potassium 4.1
Chloride 99
Carbon Dioxide 27
BUN 48 H
Creatinine 1.9 H
Glucose 91
Calcium 8.1 L
Vital Signs:
Vital Signs
Temp Pulse Resp BP Pulse Ox
97.6 F 55 18 107/59 93
07/09/24 07:23 07/09/24 07:18 07/09/24 07:23 07/09/24 07:18 07/09/24 07:23
I&O
07/08/24 07/09/24 07/10/24
06:59 06:59 06:59
Intake Total 480 / 480
Balance 480 / 480
Review of Systems
-
Constitutional: Denies Fever
EENT: Denies Sore Throat
Cardiac: Denies Chest Pain
Abdomen/GI: Denies Abdominal Pain, Nausea or Vomiting
Neuro: Denies Dizzy
Physical Exam
-
General: No Apparent Distress
HEENT: Moist Mucous Membranes
Respiratory: Clear to Auscultation and Non Labored Respirations; Negative Accessory Resp Muscle Use
Cardiac: Regular Rhythm and S1/S2
GI: Soft
Neuro: AO x 3
Data Reviewed
-
Labs: Labs Reviewed by me
[2024-07-09] MEDS: ELIQUIS 2.5 MG PO ×2 (09:00→20:25)
[2024-07-09] MEDS: LIPITOR 40 MG PO (09:00)
[2024-07-09] MEDS: PLAVIX 75 MG PO (09:01)
[2024-07-09] MEDS: VIBRAMYCIN 100 MG PO ×2 (09:01→20:25)
[2024-07-09] MEDS: PROTONIX 40 MG PO (09:01)
[2024-07-09] MEDS: TOPROL XL 25 MG PO (09:01)
[2024-07-09] MEDS: PACERONE 200 MG PO ×2 (09:01→20:25)
[2024-07-09] MEDS: FLUSH (NSS) 2 FLUSH IV (09:02)
[2024-07-09] MEDS: ZYLOPRIM 100 MG PO (09:02)
--- NOTE | 2024-07-09 09:12 | W.PN.CD ---
Today's Communication / Plan
-
holding entresto, farxiga, lasix
assess to resume lasix tomorrow based on Cr trend
Impression / Plan
-
Impression/Plan: 84 y/o male with PAF, HLD, HTN and AAA s/p EVAR admitted with rapid AF and found to have new cardiomyopathy and NSTEMI.
#JAY
-Acute, possibly with a chronic component.
-Baseline creatinine around 1.3.
-peak 2.1, and down to 1.9 today
-holding entresto, farxiga, lasix
-assess to resume lasix tomorrow
#CAD/NSTEMI
-Cardiac catheterization revealed a critical, 90-95% lesion in the LAD s/p successful IVUS guided PCI (Medtronic Jae Wilson 3.5 x 38 NAT, post dilated with 3.5 NCB) 07/04/24
-Antithrombotic therapy with clopidogrel and apixaban.
#Paroxysmal Atrial fibrillation
-Rate/rhythm control with amiodarone and metoprolol. QTc prolonged from amiodarone.
-CHADSVASC - 6(age greater than 75, CVA/TIA, hypertension, PAD)
-Therapeutic anticoagulation with apixaban 2.5 mg BID.
#Ischemic Cardiomyopathy/HFrEF
-New diagnosis.
-LVEF = 25-30% with LAD wall motion abnormality and corresponding CAD s/p PCI.
-LVEDP = 19 mmHg at cath, likely appropriate for depressed systolic function.
-GDMT as hemodynamics will tolerate.
-Continue metoprolol
-GDMT has been limited by renal function, BP, HR
-echo at 3 months to assess for ICD
#PAD
-Chronic, stable.
-AAA s/p EVAR, 2011.
-Right lower extremity revascularization with right common femoral to BK popliteal artery bypass with ipsilateral nonreversed GSV, 11/12/2021.
-Femoral artery aneurysm repair, 2005.
-High dose, high potency statin.
#HLD
-Chronic, stable.
-Total cholesterol = 80, LDL = 27, HDL = 44, Triglycerides = 48.
-Continue atorvastatin 40 mg daily.
Subjective/Interval History:
No CP, SOB, edema.
DATA:
TTE, 07/03/2024:
CONCLUSIONS
1. Mild to moderate LVH with anteroseptal and apical akinesis with severe
anterolateral hypokinesis with EF 25-30%.
2. MAC with mild mitral regurgitation.
3. Aortic sclerosis without stenosis.
4. Mild pulmonary hypertension with PA systolic pressure 40-45 mmHg.
5. Compared with the prior study from 2022, there is now extensive wall motion
abnormality consistent with interval anterior infarction. Additionally,
pulmonary hypertension is now present.
Cardiac Catheterization/PCI, 07/04/2024:
CONCLUSIONS:
1. Right dominant circulation with a 30-40% lesion in the proximal RCA, a 20% lesion in the proximal margin of OM1 and a critical, 90-95% lesion in the proximal LAD, status post successful IVUS guided PCI (Medtronic [place] 3.5 x 38 NAT,
postdilated with a 3.5 NC balloon) with reduction of stenosis to 0%, restoring NIKOLAS-3 flow.
2. Atrial fibrillation with marginal ventricular control.
3. Moderately elevated filling pressures (LVEDP = 19 mmHg, PCWP = 20 mmHg at 72.1 kg).
Physical Exam
Vital Signs/Labs
Vital Signs
Temp Pulse Resp BP Pulse Ox
97.6 F 55 18 107/59 93
07/09/24 07:23 07/09/24 07:18 07/09/24 07:23 07/09/24 07:18 07/09/24 07:23
07/08/24 07/09/24 07/10/24
06:59 06:59 06:59
Actual Weight 74.4 kg 74.5 kg
07/09/24 03:55
07/09/24 03:55
APTT Cancelled 07/04/24 21:24
Magnesium Cancelled 07/05/24 14:06
Triglycerides 48 mg/dl (10-149) 07/03/24 06:27
LDL Cholesterol, Calc 27 mg/dl 07/03/24 06:27
VLDL Cholesterol, Calc 9 mg/dl (0-30) 07/03/24 06:27
HDL Cholesterol 44 mg/dl 07/03/24 06:27
07/03/24
02:01
Swz-K-Humbqlexcss Pept [id number]
Physical Exam
Constitutional: No acute distress and Comfortable
EENT: Moist mucous membranes
Cardiovascular: Rhythm & rate is regular, Pedal edema is absent, JVD pressure is normal and Systolic murmur absent
Respiratory: Respiratory effort normal and Lungs clear to auscul.
GI: Soft and Distention absent
Neuro/Psych: AO x 3
Data Reviewed
-
Date of Service: July 09, 2024
EKG: Other (Tele: SB 50s)
Labs: Labs Reviewed by me
--- NOTE | 2024-07-09 09:39 | W.PN.NEPH.PH ---
Today's Communication / Plan
-
Creatinine with improvement
I's and O's not recorded
Weight stable
Can start Lasix tomorrow
Assessment/Plan
-
Assessment
CKD 3A-baseline cr 1.5-1.7
Heart failure reduced ejection fraction
Hypertension
Atrial fibrillation
GERD
Abnormal troponin
Plan
Creatinine better 1.9 (likely plateauing following contrast administration)
follow BMP
JAY combination with recent contrast, addition of Farxiga and now addition of Entresto.
Hopefully most of this is contrast related, but we will need to hold both Farxiga and Entresto
bp remains low
Okay to initiate Lasix tomorrow if creatinine remains stable or improved
-
-
Date of Service: July 09, 2024
CC / HPI / ROS
-
Chief Complaint:
CKD
History of Present Illness:
cr is unchanged 1.9
Hemoglobin stable 12
BP stable, on RA
Review of Systems:
no cp
Mild shortness of breath
Weights unchanged
Urine output not recorded
Labs
-
Labs:
WBC 9.4 10^3/uL (4.8-10.8) 07/09/24 03:55
RBC 4.29 10^6/uL (4.70-6.10) L 07/09/24 03:55
Hgb 12.2 g/dL (13.0-18.0) L 07/09/24 03:55
Hct 35.8 % (39.0-52.0) L 07/09/24 03:55
Plt Count 219 10^3/uL (130-400) 07/09/24 03:55
Sodium 136 mmol/L (135-145) 07/09/24 03:55
Potassium 4.1 mmol/L (3.5-5.1) 07/09/24 03:55
Chloride 99 mmol/L (98-107) 07/09/24 03:55
Carbon Dioxide 27 mmol/L (22-30) 07/09/24 03:55
BUN 48 mg/dl (9-20) H 07/09/24 03:55
Creatinine 1.9 mg/dL (0.7-1.3) H 07/09/24 03:55
eGFR 34.79 07/09/24 03:55
Glucose 91 mg/dl (70-99) 07/09/24 03:55
Calcium 8.1 mg/dl (8.4-10.2) L 07/09/24 03:55
Phosphorus Cancelled 07/05/24 14:06
Nyi-S-Zkrsiprczpi Pept [id number] pg/ml 07/03/24 02:01
Albumin 3.5 g/dl (3.5-5.0) 07/03/24 00:57
Physical Exam
-
Vital Signs:
Vital Signs
Temp Pulse Resp BP Pulse Ox
97.6 F 55 18 107/59 93
07/09/24 07:23 07/09/24 07:18 07/09/24 07:23 07/09/24 07:18 07/09/24 07:23
Cardiovascular:: Regular rate and rhythm
Respiratory:: Bilateral: Coarse (Decreased breath sounds to bases)
Lung Excursion:: Normal
Abdomen:: Nontender and Soft
Bowel Sounds:: Normal
Extremity Edema:: None: Bilateral:
Benedict Catheter: No
--- NOTE | 2024-07-09 10:23 | PTCARENOTE ---
Received patient this morning resting in bed, concerned that he had coughed and expectorated some blood tinged mucous. Dr. Reis in to see the patient and was made aware. Patient on O2 2L NC during the night, presently on RA with pulse ox of 95%.
--- NOTE | 2024-07-09 21:49 | PTCARENOTE ---
Pt received at change of shift seated in the chair. ambulating as a self w/ RW. plan of care discussed- pt verbalized understanding. SB in the 50s on the monitor.
[2024-07-10] VITALS (8 sets, daily range): BP systolic 109–131; BP diastolic 51–76; BMI 21.6
[2024-07-10 04:53] LABS: Blood Urea Nitrogen 44 mg/dl (9-20); Calcium 8.3 mg/dl (8.4-10.2); Carbon Dioxide 29 mmol/L (22-30); Chloride 99 mmol/L (98-107); Estimated Creatinine Clearance 33 ml/min; Glucose 89 mg/dl (70-99); Sodium 136 mmol/L (135-145); eGFR 37.12
[2024-07-10] MEDS: LIPITOR 40 MG PO (07:39)
[2024-07-10] MEDS: PROTONIX 40 MG PO (07:39)
[2024-07-10] MEDS: TOPROL XL 25 MG PO (07:39)
[2024-07-10] MEDS: ZYLOPRIM 100 MG PO (07:39)
[2024-07-10] MEDS: VIBRAMYCIN 100 MG PO ×2 (07:39→19:39)
[2024-07-10] MEDS: ELIQUIS 2.5 MG PO ×2 (07:39→19:38)
[2024-07-10] MEDS: PLAVIX 75 MG PO (07:39)
[2024-07-10] MEDS: PACERONE 200 MG PO ×2 (07:39→19:39)
--- NOTE | 2024-07-10 07:57 | W.PN.CD ---
Today's Communication / Plan
-
Furosemide 20 mg PO and monitor weight/renal function.
Lisinopril 2.5 mg PO daily tomorrow.
Discharge planning.
Impression / Plan
-
Impression/Plan: 84 y/o male with PAF, HLD, HTN and AAA s/p EVAR admitted with rapid AF and found to have new cardiomyopathy and NSTEMI.
#Acute on chronic kidney injury
-Baseline creatinine around 1.3-1.5.
-Creatinine peaked at 2.1, down to 1.8 today.
-Resume furosemide 20 mg PO daily.
-If tolerates, would favor lisinopril 2.5 mg PO daily tomorrow.
-We will reassess for SGLT2i after that (possibly as an outpatient).
#CAD/NSTEMI
-Cardiac catheterization revealed a critical, 90-95% lesion in the LAD s/p successful IVUS guided PCI (Medtronic Jae Shannon 3.5 x 38 NAT, post dilated with 3.5 NCB) 07/04/24
-Antithrombotic therapy with clopidogrel and apixaban.
#Paroxysmal Atrial fibrillation
-Currently in NSR.
-Rate/rhythm control with amiodarone and metoprolol. QTc prolonged from amiodarone.
-CHADSVASC = 6 (age greater than 75, CVA/TIA, hypertension, PAD)
-Therapeutic anticoagulation with apixaban 2.5 mg BID.
#Ischemic Cardiomyopathy/HFrEF
-New diagnosis.
-LVEF = 25-30% with LAD wall motion abnormality and corresponding CAD s/p PCI.
-LVEDP = 19 mmHg at cath, likely appropriate for depressed systolic function.
-GDMT as hemodynamics will tolerate, somewhat limited by BP/renal function.
-Continue metoprolol.
-Restart low dose furosemide today.
-If renal function tolerates introduction of diuretics, we will start lisinopril 2.5 mg PO daily tomorrow.
-Repeat echo at 3 months to assess for ICD.
#PAD
-Chronic, stable.
-AAA s/p EVAR, 2011.
-Right lower extremity revascularization with right common femoral to BK popliteal artery bypass with ipsilateral nonreversed GSV, 11/12/2021.
-Femoral artery aneurysm repair, 2005.
-High dose, high potency statin.
#HLD
-Chronic, stable.
-Total cholesterol = 80, LDL = 27, HDL = 44, Triglycerides = 48.
-Continue atorvastatin 40 mg daily.
Subjective/Interval History:
Remains sinus shirley (50's).
Weight stable at 74.4 (74.5 kg yesterday), but this is also a weight where he started to develop Sx of HF.
SaO2 92% on RA.
Today is day 4/5 on doxycycline.
DATA:
TTE, 07/03/2024:
CONCLUSIONS
1. Mild to moderate LVH with anteroseptal and apical akinesis with severe
anterolateral hypokinesis with EF 25-30%.
2. MAC with mild mitral regurgitation.
3. Aortic sclerosis without stenosis.
4. Mild pulmonary hypertension with PA systolic pressure 40-45 mmHg.
5. Compared with the prior study from 2022, there is now extensive wall motion
abnormality consistent with interval anterior infarction. Additionally,
pulmonary hypertension is now present.
Cardiac Catheterization/PCI, 07/04/2024:
CONCLUSIONS:
1. Right dominant circulation with a 30-40% lesion in the proximal RCA, a 20% lesion in the proximal margin of OM1 and a critical, 90-95% lesion in the proximal LAD, status post successful IVUS guided PCI (Medtronic [place] 3.5 x 38 NAT,
postdilated with a 3.5 NC balloon) with reduction of stenosis to 0%, restoring NIKOLAS-3 flow.
2. Atrial fibrillation with marginal ventricular control.
3. Moderately elevated filling pressures (LVEDP = 19 mmHg, PCWP = 20 mmHg at 72.1 kg).
Physical Exam
Vital Signs/Labs
Vital Signs
Temp Pulse Resp BP Pulse Ox
36.5 C 58 20 131/76 92
07/10/24 07:20 07/10/24 07:22 07/10/24 07:20 07/10/24 07:22 07/10/24 07:20
07/08/24 07/09/24 07/10/24
11:59 11:59 11:59
Actual Weight 74.4 kg 74.5 kg 74.4 kg
07/09/24 03:55
07/10/24 04:20
APTT Cancelled 07/04/24 21:24
Magnesium Cancelled 07/05/24 14:06
Triglycerides 48 mg/dl (10-149) 07/03/24 06:27
LDL Cholesterol, Calc 27 mg/dl 07/03/24 06:27
VLDL Cholesterol, Calc 9 mg/dl (0-30) 07/03/24 06:27
HDL Cholesterol 44 mg/dl 07/03/24 06:27
07/03/24
02:01
Vbw-K-Iacmljbjjgo Pept [id number]
Physical Exam
Constitutional: No acute distress and Comfortable
EENT: Anicteric and Moist mucous membranes
Cardiovascular: Rhythm & rate is regular, Pedal edema is absent, JVD pressure is normal, S1S2 is normal and Murmur/rub/gallop absent
Respiratory: Respiratory effort normal, Lungs clear to auscul., Wheeze Absent, Crackles Absent and Rhonchi Absent
GI: Soft, Distention absent, Flat, Non tender and Normal bowel sounds
Neuro/Psych: AO x 3
Other: Cath Site (Right radial access site is C/D/I.)
Data Reviewed
-
Date of Service: July 10, 2024
Medical Decision Making: Reviewed Test Results, Independent Historian Assessment and Test Interpretation
EKG: Tracing Personally Visualized and interpreted and Report Reviewed by me
Echo: Tracing Personally Visualized and interpreted and Report Reviewed by me
X-Ray/CT/US/MRI/NUC/PET: Image Personally Visualized and interpreted and Report Reviewed by me
Medical Tests (PFT, Pathology etc): Image Personally Visualized and interpreted and Report Reviewed by me
Labs: Labs Reviewed by me
Old Records: Reviewed
--- NOTE | 2024-07-10 09:16 | W.PN.HOSP.TC ---
Today's Communication/Plan
-
Restart lasix.
Repeat CXR;home O2 eval.
Assessment / Plan
Assessment / Plan
Pt is an 84 year old male presented with shortness of breath
# Acute hypoxic respiratory insufficiency-chest x-ray shows Slightly increased bilateral ill-defined opacities most prominent in the right upper lung and left lower lung which could represent pneumonia/pneumonitis.
Added incentive spirometry
5 days of doxycycline
Repeat CXR prior to dc
Check home O2 need
# COVID-19 infection end of May 2024
# JAY CKD III
S/P bicarb drip for renal protection
Elevation in creatinine likely a combination of Lasix, Jardiance and Entresto
Resume lasix and other meds when ok from renal - cleared for use today
Improving Cr
# ACS/AMI -Patient with ST-T changes on EKG concerning for active ischemia and initial troponin in the ED of 4.23, peaked at 6.5
ECHO showed drop in EF which prompted cath
Cath with successful stenting of a 90-95% LAD lesion,
Restarted Eliquis
Cont Plavix, Off asa, statin, metoprolol
# Acute HF with reduced EF
Suspect HFrEF due to AMI/ischemia as noted above
Pulm edema by exam and CXR - no prior h/o same
BNP - 23k
Lasix resumed
Continue beta-spenser, Farxiga and Entresto placed on hold
# Paroxysmal Atrial Fibrillation with Rapid Ventricular response-
Patient in sinus rhythm with PACs on arrival -off of Cardizem gtt -on beta-spenser now
Restarted Eliquis, amiodarone, metoprolol
# GERD/PUD - Prior h/o GI bleeding on DAPT following PAD procedure - Continue daily PPI
# Gout-continue allopurinol
# Peripheral artery disease-history of AAA status post endovascular aneurysm repair 2011
History of right common femoral artery to popliteal artery bypass with ipsilateral nonreversed GSV 11/12/2021
Femoral artery aneurysm repair 2005
Continue Plavix and statin
# Hyperlipidemia-continue statin
# History of TIA 2015
# Ex-smoker
# DVT Prophylaxis: Eliquis
# Code Status: Full
Left a message for .
D/W RN .
Part of this note was created using voice recognition system. Occasional wrong word or��sound alike� substitutions may have inadvertently occurred due to the inherent limitations of voice recognition software. If noted kindly bring it to my
attention for correction.
Anticipated Discharge: Within 24 hours
Subjective/Interval History
-
Date of Service: July 10, 2024
No CP or SOB
Didnt need O2 last night
Objective Data
-
Labs:
Laboratory Results
07/10/24
04:20
Sodium 136
Potassium 4.0
Chloride 99
Carbon Dioxide 29
BUN 44 H
Creatinine 1.8 H
Glucose 89
Calcium 8.3 L
Vital Signs:
Vital Signs
Temp Pulse Resp BP Pulse Ox
97.7 F 58 20 131/76 95
07/10/24 07:20 07/10/24 07:22 07/10/24 07:20 07/10/24 07:22 07/10/24 08:49
I&O
07/09/24 07/10/24 07/11/24
06:59 06:59 06:59
Intake Total 840 / 840
Balance 840 / 840
Review of Systems
-
Constitutional: Denies Fever or Chills
EENT: Denies Sore Throat
Respiratory: Denies Trouble Breathing
Cardiac: Denies Chest Pain
Abdomen/GI: Denies Abdominal Pain, Nausea or Vomiting
Neuro: Denies Dizzy
Physical Exam
-
General: No Apparent Distress
HEENT: Moist Mucous Membranes
Respiratory: Crackles (few in right lower zone) and Non Labored Respirations; Negative Wheezes or Accessory Resp Muscle Use
Cardiac: Regular Rhythm and S1/S2
GI: Soft
Neuro: AO x 3
Data Reviewed
-
Labs: Labs Reviewed by me
[2024-07-10] MEDS: LASIX 20 MG PO (10:32)
--- NOTE | 2024-07-10 11:25 | PTCARENOTE ---
Patient sent to x-ray earlier. Back in chair, POX 95% on room air. PO Lasix given, fine crackles b/l at the bases. Instructed to use urinal to measure urine output. NSR, denies chest pain or shortness of breath, call [facility]land in reach
--- NOTE | 2024-07-10 12:35 | CM ---
Chart reviewed. Patient is independent of ADLS, lives with his in a [address] [place], [address], 0 JUDD, ambulates with a SPC. Plan is for the patient to return home. CM to follow
--- NOTE | 2024-07-10 13:19 | W.PN.NEPH.PH ---
Today's Communication / Plan
-
ok for lasix
Assessment/Plan
-
Assessment
CKD 3A-baseline cr 1.5-1.7
Heart failure reduced ejection fraction
Hypertension
Atrial fibrillation
GERD
Abnormal troponin
Plan
Creatinine better 1.8 close to baseline
JAY combination with recent contrast, addition of Farxiga and Entresto.
ok to resume lasix today
would wait on RAASI till cr stabilizes on lasix
bp remains soft
follow labs
d/c plan
-
-
Date of Service: July 10, 2024
CC / HPI / ROS
-
Chief Complaint:
CKD
History of Present Illness:
cr is unchanged 1.8
BP stable, on RA
no fever
Review of Systems:
no cp
no shortness of breath at rest
Weights unchanged
Urine output not recorded
Labs
-
Labs:
WBC 9.4 10^3/uL (4.8-10.8) 07/09/24 03:55
RBC 4.29 10^6/uL (4.70-6.10) L 07/09/24 03:55
Hgb 12.2 g/dL (13.0-18.0) L 07/09/24 03:55
Hct 35.8 % (39.0-52.0) L 07/09/24 03:55
Plt Count 219 10^3/uL (130-400) 07/09/24 03:55
Sodium 136 mmol/L (135-145) 07/10/24 04:20
Potassium 4.0 mmol/L (3.5-5.1) 07/10/24 04:20
Chloride 99 mmol/L (98-107) 07/10/24 04:20
Carbon Dioxide 29 mmol/L (22-30) 07/10/24 04:20
BUN 44 mg/dl (9-20) H 07/10/24 04:20
Creatinine 1.8 mg/dL (0.7-1.3) H 07/10/24 04:20
eGFR 37.12 07/10/24 04:20
Glucose 89 mg/dl (70-99) 07/10/24 04:20
Calcium 8.3 mg/dl (8.4-10.2) L 07/10/24 04:20
Phosphorus Cancelled 07/05/24 14:06
Lsv-Z-Ihnrqgzrtad Pept 56400 pg/ml 07/03/24 02:01
Albumin 3.5 g/dl (3.5-5.0) 07/03/24 00:57
Physical Exam
-
Vital Signs:
Vital Signs
Temp Pulse Resp BP Pulse Ox
97.6 F 50 18 109/61 93
07/10/24 11:12 07/10/24 12:00 07/10/24 11:12 07/10/24 11:12 07/10/24 11:12
Cardiovascular:: Regular rate and rhythm
Respiratory:: Bilateral: CTA
Lung Excursion:: Normal
Abdomen:: Nontender and Soft
Extremity Edema:: None: Bilateral: (trace)
Benedict Catheter: No
--- NOTE | 2024-07-10 23:42 | PTCARENOTE ---
RA pulse ox 86% when pt. woken for HS vitals. Denied feeling SOB. 2L O2 placed; pulse ox increased to 92-93%. Otherwise pt. states he feels well, hoping for discharge tomorrow.
[2024-07-11 03:55] VITALS: BP 117/64
[2024-07-11 04:14] VITALS: BMI 21.7
[2024-07-11 04:47] LABS: Blood Urea Nitrogen 44 mg/dl (9-20); Calcium 8.5 mg/dl (8.4-10.2); Carbon Dioxide 28 mmol/L (22-30); Chloride 101 mmol/L (98-107); Estimated Creatinine Clearance 33 ml/min; Glucose 91 mg/dl (70-99); Potassium 4.2 mmol/L (3.5-5.1); Sodium 136 mmol/L (135-145); eGFR 37.12
[2024-07-11 07:37] VITALS: BP 116/72
[2024-07-11] MEDS: VIBRAMYCIN 100 MG PO (07:43)
[2024-07-11] MEDS: PROTONIX 40 MG PO (07:43)
[2024-07-11] MEDS: TOPROL XL 25 MG PO (07:43)
[2024-07-11] MEDS: LASIX 20 MG PO (07:43)
[2024-07-11] MEDS: ELIQUIS 2.5 MG PO (07:43)
[2024-07-11] MEDS: PLAVIX 75 MG PO (07:43)
[2024-07-11] MEDS: LIPITOR 40 MG PO (07:44)
[2024-07-11] MEDS: ZYLOPRIM 100 MG PO (07:44)
[2024-07-11] MEDS: PACERONE 200 MG PO (07:44)
--- NOTE | 2024-07-11 08:27 | W.PN.CD ---
Today's Communication / Plan
-
Continue furosemide 20 mg daily.
Increase furosemide to 40 mg daily PRN weight gain of 1-3 lbs/24 hours, 3-5 lbs/week.
Outpatient BMP/renal follow up.
Outpatient evaluation for ACEI/SGLT2i.
Stable for outpatient follow up.
Impression / Plan
-
Impression/Plan: 84 y/o male with PAF, HLD, HTN and AAA s/p EVAR admitted with rapid AF and found to have new cardiomyopathy and NSTEMI.
#Acute on chronic kidney injury
-Baseline creatinine around 1.3-1.5.
-Creatinine peaked at 2.1, remains 1.8 today.
-Continue furosemide 20 mg PO daily with flex dosing to 40 mg daily for weight gain of 1-3 lbs/24 hours, 3-5 lbs/week.
-Outpatient BMP scheduled for 07/21/2024 with renal follow up on 07/24/2024.
-Outpatient evaluation for ACEI/SGLT2i (dapagliflozin 10 mg daily).
#CAD/NSTEMI
-Cardiac catheterization revealed a critical, 90-95% lesion in the LAD s/p successful IVUS guided PCI (Medtronic Jae Greer 3.5 x 38 NAT, post dilated with 3.5 NCB) 07/04/24
-Antithrombotic therapy with clopidogrel and apixaban.
#Paroxysmal Atrial fibrillation
-Currently in NSR.
-Rate/rhythm control with amiodarone and metoprolol. QTc prolonged from amiodarone.
-CHADSVASC = 6 (age greater than 75, CVA/TIA, hypertension, PAD)
-Therapeutic anticoagulation with apixaban 2.5 mg BID.
#Ischemic Cardiomyopathy/HFrEF
-New diagnosis.
-LVEF = 25-30% with LAD wall motion abnormality and corresponding CAD s/p PCI.
-LVEDP = 19 mmHg at cath, likely appropriate for depressed systolic function.
-GDMT as hemodynamics will tolerate, somewhat limited by BP/renal function.
-Continue metoprolol and furosemide with flex dosing.
-Repeat echo at 3 months to assess for ICD.
#PAD
-Chronic, stable.
-AAA s/p EVAR, 2011.
-Right lower extremity revascularization with right common femoral to BK popliteal artery bypass with ipsilateral nonreversed GSV, 11/12/2021.
-Femoral artery aneurysm repair, 2005.
-High dose, high potency statin.
#HLD
-Chronic, stable.
-Total cholesterol = 80, LDL = 27, HDL = 44, Triglycerides = 48.
-Continue atorvastatin 40 mg daily.
Subjective/Interval History:
Nocturnal hypoxia again overnight.
SaO2 86% on RA, responded to 2LNC, now resolved.
Weight stable at 74.5 kg.
Vitals are otherwise stable.
Creatinine stable at 1.8.
DATA:
TTE, 07/03/2024:
CONCLUSIONS
1. Mild to moderate LVH with anteroseptal and apical akinesis with severe
anterolateral hypokinesis with EF 25-30%.
2. MAC with mild mitral regurgitation.
3. Aortic sclerosis without stenosis.
4. Mild pulmonary hypertension with PA systolic pressure 40-45 mmHg.
5. Compared with the prior study from 2022, there is now extensive wall motion
abnormality consistent with interval anterior infarction. Additionally,
pulmonary hypertension is now present.
Cardiac Catheterization/PCI, 07/04/2024:
CONCLUSIONS:
1. Right dominant circulation with a 30-40% lesion in the proximal RCA, a 20% lesion in the proximal margin of OM1 and a critical, 90-95% lesion in the proximal LAD, status post successful IVUS guided PCI (Medtronic Jae Greer 3.5 x 38 NAT,
postdilated with a 3.5 NC balloon) with reduction of stenosis to 0%, restoring NIKOLAS-3 flow.
2. Atrial fibrillation with marginal ventricular control.
3. Moderately elevated filling pressures (LVEDP = 19 mmHg, PCWP = 20 mmHg at 72.1 kg).
CXR, 07/10/2024:
IMPRESSION:
Minimal bilateral pleural effusions, slightly improved from examination of July 06, 2024.
Lungs appear hyperinflated suggesting COPD.
Increased reticulonodular markings, greatest in the right upper lobe and the left lower lung, slightly improved from examination of July 06, 2024. Findings could represent interstitial edema and/or pneumonia.
Physical Exam
Vital Signs/Labs
Vital Signs
Temp Pulse Resp BP Pulse Ox
36.6 C 58 20 117/64 92
07/11/24 07:34 07/11/24 04:00 07/11/24 07:34 07/11/24 03:55 07/11/24 07:34
07/09/24 07/10/24 07/11/24
11:59 11:59 11:59
Actual Weight 74.5 kg 74.4 kg 74.5 kg
07/09/24 03:55
07/11/24 04:04
APTT Cancelled 07/04/24 21:24
Magnesium Cancelled 07/05/24 14:06
Triglycerides 48 mg/dl (10-149) 07/03/24 06:27
LDL Cholesterol, Calc 27 mg/dl 07/03/24 06:27
VLDL Cholesterol, Calc 9 mg/dl (0-30) 07/03/24 06:27
HDL Cholesterol 44 mg/dl 07/03/24 06:27
07/03/24
02:01
Oia-W-Xdrmbfglcdv Pept [id number]
Physical Exam
Constitutional: No acute distress and Comfortable
EENT: Anicteric and Moist mucous membranes
Cardiovascular: Rhythm & rate is regular, Pedal edema is absent, JVD pressure is normal, S1S2 is normal and Murmur/rub/gallop absent
Respiratory: Respiratory effort normal, Lungs clear to auscul., Wheeze Absent, Crackles Absent and Rhonchi Absent
GI: Soft, Distention absent, Flat, Non tender and Normal bowel sounds
Neuro/Psych: AO x 3
Data Reviewed
-
Date of Service: July 11, 2024
Medical Decision Making: Reviewed Test Results, Independent Historian Assessment and Test Interpretation
EKG: Tracing Personally Visualized and interpreted and Report Reviewed by me
Echo: Tracing Personally Visualized and interpreted and Report Reviewed by me
X-Ray/CT/US/MRI/NUC/PET: Image Personally Visualized and interpreted and Report Reviewed by me
Medical Tests (PFT, Pathology etc): Image Personally Visualized and interpreted and Report Reviewed by me
Labs: Labs Reviewed by me
Old Records: Reviewed
--- NOTE | 2024-07-11 08:42 | W.PN.NEPH.PH ---
Today's Communication / Plan
-
farxiga
Assessment/Plan
-
Assessment
CKD 3A-baseline cr 1.5-1.7
Heart failure reduced ejection fraction
Hypertension
Atrial fibrillation
GERD
Abnormal troponin
Plan
follow BMP
restart farxiga. best chance of max dose med for risk reduction as lisinopril will be hampered by BP
has slip for labs on 07/21 and OV thereafter
-
-
Date of Service: July 11, 2024
CC / HPI / ROS
-
Chief Complaint:
CKD
History of Present Illness:
cr is unchanged 1.8 stable
BP stable, on RA
no fever
Review of Systems:
no cp
no shortness of breath at rest
Labs
-
Labs:
WBC 9.4 10^3/uL (4.8-10.8) 07/09/24 03:55
RBC 4.29 10^6/uL (4.70-6.10) L 07/09/24 03:55
Hgb 12.2 g/dL (13.0-18.0) L 07/09/24 03:55
Hct 35.8 % (39.0-52.0) L 07/09/24 03:55
Plt Count 219 10^3/uL (130-400) 07/09/24 03:55
Sodium 136 mmol/L (135-145) 07/11/24 04:04
Potassium 4.2 mmol/L (3.5-5.1) 07/11/24 04:04
Chloride 101 mmol/L (98-107) 07/11/24 04:04
Carbon Dioxide 28 mmol/L (22-30) 07/11/24 04:04
BUN 44 mg/dl (9-20) H 07/11/24 04:04
Creatinine 1.8 mg/dL (0.7-1.3) H 07/11/24 04:04
eGFR 37.12 07/11/24 04:04
Glucose 91 mg/dl (70-99) 07/11/24 04:04
Calcium 8.5 mg/dl (8.4-10.2) 07/11/24 04:04
Phosphorus Cancelled 07/05/24 14:06
Qbm-K-Qkmrmiuduby Pept 29922 pg/ml 07/03/24 02:01
Albumin 3.5 g/dl (3.5-5.0) 07/03/24 00:57
Physical Exam
-
Vital Signs:
Vital Signs
Temp Pulse Resp BP Pulse Ox
97.8 F 58 20 117/64 92
07/11/24 07:34 07/11/24 04:00 07/11/24 07:34 07/11/24 03:55 07/11/24 07:34
Cardiovascular:: Regular rate and rhythm
Respiratory:: Bilateral: Coarse
Lung Excursion:: Normal
Abdomen:: Nontender and Soft
Bowel Sounds:: Normal
Extremity Edema:: None: Bilateral:
--- NOTE | 2024-07-11 09:01 | W.PN.HOSP.TC ---
Today's Communication/Plan
-
DC
Assessment / Plan
Assessment / Plan
Pt is an 84 year old male presented with shortness of breath
# Acute hypoxic respiratory insufficiency-chest x-ray shows slightly increased bilateral ill-defined opacities most prominent in the right upper lung and left lower lung which could represent pneumonia/pneumonitis. Patient never spiked a fever and
his white count was mostly normal apart from 1 spike.
Repeat CXR 07/10 shows Minimal bilateral pleural effusions, slightly improved from examination of July 06, 2024.Increased reticulonodular markings, greatest in the right upper lobe and the left lower lung, slightly improved from examination of
July 06, 2024. Findings could represent interstitial edema and/or pneumonia.
PCWP was elevated on right heart cath initially during admission.
Suspect concurrent interstitial edema but cannot rule out superimposed pneumonitis/pneumonia.
Home O2 measurements shows no need for oxygen. Saturating well on room air.
Complete the course of antibiotics.
Continue with the diuretics per cardiology.
# COVID-19 infection end of May 2024
# AJY CKD III
S/P bicarb drip for renal protection
Elevation in creatinine likely a combination of Lasix, Jardiance and Entresto
Resumed lasix
Improving Cr ;follow BMP as OP
# ACS/AMI -Patient with ST-T changes on EKG concerning for active ischemia and initial troponin in the ED of 4.23, peaked at 6.5
ECHO showed drop in EF which prompted cath
Cath with successful stenting of a 90-95% LAD lesion,
Restarted Eliquis
Cont Plavix, Off asa, statin, metoprolol
# Acute HF with reduced EF
Suspect HFrEF due to AMI/ischemia as noted above
Pulm edema by exam and CXR - no prior h/o same
BNP - 23k
Lasix resumed
Continue beta-blocke;, Farxiga; ACEI/ Entresto as OP
# Paroxysmal Atrial Fibrillation with Rapid Ventricular response-
Patient in sinus rhythm with PACs on arrival -off of Cardizem gtt -on beta-spenser now
Restarted Eliquis, amiodarone, metoprolol
# GERD/PUD - Prior h/o GI bleeding on DAPT following PAD procedure - Continue daily PPI
# Gout-continue allopurinol
# Peripheral artery disease-history of AAA status post endovascular aneurysm repair 2011
History of right common femoral artery to popliteal artery bypass with ipsilateral nonreversed GSV 11/12/2021
Femoral artery aneurysm repair 2005
Continue Plavix and statin
# Hyperlipidemia-continue statin
# History of TIA 2015
# Ex-smoker
# DVT Prophylaxis: Eliquis
# Code Status: Full
Discussed with nephrology today-continue Farxiga. Prefers to hold lisinopril for now.
Follow BMP as an outpatient.
DC home once seen and cleared by cardiology today.
Total time of discharge 32 minutes
Anticipated Discharge: Today
Subjective/Interval History
-
Date of Service: July 11, 2024
Feels well. Denies any shortness of breath, chest pain.
No lightheadedness.
Denies nausea vomiting or abdominal pain.
Objective Data
-
Labs:
Laboratory Results
07/11/24
04:04
Sodium 136
Potassium 4.2
Chloride 101
Carbon Dioxide 28
BUN 44 H
Creatinine 1.8 H
Glucose 91
Calcium 8.5
Vital Signs:
Vital Signs
Temp Pulse Resp BP Pulse Ox
97.8 F 58 20 117/64 92
07/11/24 07:34 07/11/24 04:00 07/11/24 07:34 07/11/24 03:55 07/11/24 07:34
I&O
07/10/24 07/11/24 07/12/24
06:59 06:59 06:59
Intake Total 840 / 840 240 / 240
Output Total 1375 / 1375
Balance 840 / 840 -1135 / -1135
Review of Systems
-
Constitutional: Denies Fever or Chills
EENT: Denies Sore Throat
Physical Exam
-
General: No Apparent Distress
HEENT: Moist Mucous Membranes
Respiratory: Crackles (few in left base today) and Non Labored Respirations; Negative Wheezes, Rhonchi or Accessory Resp Muscle Use
Cardiac: Regular Rhythm and S1/S2; Negative Tachycardic
Neuro: AO x 3
Psych: Calm
Data Reviewed
-
Diagnostic Radiology: Report Reviewed by me (xray chest)
Labs: Labs Reviewed by me
--- NOTE | 2024-07-11 09:47 | PTCARENOTE ---
Assumed care at 0700. Patient up in the chair already. VSS, SB on telemetry. denies pain or shortness of breath, fine rales at bases b/l, 92% on room air. Walking in halls and room using his rolling walker.
[2024-07-11] MEDS: FARXIGA 10 MG PO (12:05)
--- NOTE | 2024-07-11 12:41 | W.DS.TRANS ---
DC Summary - Land [employer]or [employer]
-
Discharge Instructions:
Sleep Apnea Risk Intermediate
Discharge Diagnosis/Procedures Acute TX with systolic heart failure. JAY on
chronic kidney disease stage III. Angioplasty
and stent to Left Anterior Descending artery
Diet Low Cholesterol
Activity As tolerated
Driving Restrictions As prior to admission
Blood Work BMP as recommended by Dr Brown
Others Tests chest xray 2 view in 3-4 weeks to follow on
pneumonia/pneumonitis - arrange through your PCP
Other Services Cardiac Rehab
Specialty Instructions Weigh Daily
Instructions: *CBC Heart Failure Instructions
Stand-Alone Forms: DC Instructions- Cath/EP Lab
Changes to Home Medications: Yes
Discharge Medications:
DC Medications w/original date entered in [employer]
atorvastatin 40 mg tablet 40 mg PO DAILY High cholesterol 11/10/16
allopurinol 100 mg tablet 100 mg PO DAILY Gout 09/08/21
coenzyme [id number] 100 mg-100 unit capsule 1 cap PO DAILY Supplement 11/12/21
cholecalciferol (vitamin D3) 50 mcg (2,000 unit) tablet (Vitamin D3) 2,000 unit PO DAILY Supplement 07/26/22
iron 25 mg PO DAILY Supplement 07/26/22
pantoprazole 40 mg tablet,delayed release 40 mg PO DAILY Gastrointestinal Issue 07/26/22
apixaban 5 mg tablet (Eliquis) 2.5 mg PO BID Blood Clot Prevention/Tx 07/03/24
amiodarone 200 mg tablet 200 mg PO BID #60 tabs 07/11/24
clopidogrel 75 mg tablet 75 mg PO DAILY #30 tabs 07/11/24
dapagliflozin propanediol 10 mg tablet 10 mg PO DAILY #30 tabs 07/11/24
doxycycline hyclate 100 mg capsule 100 mg PO Q12 #5 caps 07/11/24
furosemide 20 mg tablet 20 mg PO DAILY #30 tabs 07/11/24
metoprolol succinate 25 mg tablet,extended release 24 hr 25 mg PO DAILY #30 tabs 07/11/24
nitroglycerin 0.4 mg sublingual tablet 0.4 mg sublingual [id number] PRN Chest Pain #30 tabs 07/11/24
Home Medication Changes
Change in medication-amiodarone dose increased to 200 mg twice daily.
New medication-Plavix, Farxiga, doxycycline, Lasix, metoprolol,'s sublingual nitro.
Discontinued medication-lisinopril, and aspirin.
Pending Results: No
--- NOTE | 2024-07-11 13:39 | PTCARENOTE ---
Patient discharged to home verbalized understanding of all discharge instructions, and drug coupons given to . IV and telemetry removed and escorted to main lobby in a wheelchair.
--- NOTE | 2024-07-11 14:09 | CM ---
CM following for DC planning needs.
Plan is for DC to home today w/ spouse + VN thru [facility].
Discussed this with patient and spouse at bedside.
Plan: Home w/ [facility]
--- NOTE | 2024-07-12 18:06 | W.DCSUMMARY ---
Discharge Summary
Discharge Data
Date of Admission: 07/03/24
Date of Discharge: 07/12/24
-
Pending Results: No
Hospital Course
Primary diagnosis:
Acute coronary syndrome with acute myocardial infarction
Acute heart failure with reduced EF
Acute hypoxic respiratory insufficiency secondary possible pneumonia/pneumonitis/interstitial edema
Acute kidney injury on chronic kidney disease stage III
Secondary diagnosis:
Paroxysmal fibrillation
Gout
Peripheral arterial disease
AAA s/p endovascular aneurysm repair in 2011
Hyperlipidemia
Peptic ulcer disease
History of transient ischemic attack
Hospital course:
Patient with acute shortness of breath secondary to acute coronary syndrome and MD. Troponin peaked at 6.5. Echo showed drop in EF 25-30%. Had an urgent cath and LAD lesion successfully stented. His pulmonary capillary wedge pressure was high as
well. He was put on diuresis. He was put on Plavix and his home aspirin was discontinued. He was maintained on Eliquis for A-fib.
Acute respiratory insufficiency unclear if there was pneumonia or pneumonitis versus interstitial edema. He was also given a course of antibiotics along with diuresis with resolution of hypoxia.
He was also put on beta-spenser and Farxiga. PRADEEP inhibitor's/Entresto need would be evaluated as an outpatient.
He also had RVR issues with A-fib and his dose of amiodarone was increased on this admission.
Chronic kidney stage III and his creatinine during this acute event jump from 1.3 to peak of 2.1. Was seen by nephrology. Unclear if it is secondary to MD insult or contrast but his creatinine improved 1.8 at the time of discharge. He will have
follow-up BMP n office visit with nephrology.
Consultants on board:
Cardiology-Morris Busch
Nephrology-Reji Foster
Discharge Plan
-
Patient Disposition: Home with Home Care
Discharge Diagnosis/Procedures: Acute MD with systolic heart failure. JAY on chronic kidney disease stage III. Angioplasty and stent to Left Anterior Descending artery
Condition: Good
Diet: Low Cholesterol
Activity: As tolerated
Driving Restrictions: As prior to admission
Blood Work: BMP as recommended by Dr Brown
Others Tests: chest xray 2 view in 3-4 weeks to follow on pneumonia/pneumonitis - arrange through your PCP
Other Services: Cardiac Rehab
Specialty Instructions: Weigh Daily- Call MD for wt gain/loss 3 lbs overnight/5 lbs in 1 week
Instructions: *CBC Heart Failure Instructions
Stand Alone Forms: DC Instructions- Cath/EP Lab
Referrals:
[facility] [Other] (FAX [phone])
[facility] [Outside] - 08/14/24 1:00 pm
(Cardiac Rehab Orientation appointment is 08/14/24 at 1:00 pm
(call for sooner appointment if/when PT/OT is no longer needed)
The Cardiac Rehab gym is located on the first floor of the [facility].)
Morris Sands MD [Active] - 07/19/24 3:20 pm (Cardiology followup appointment)
Ron Cazares DO [Family Provider] - in less than 1 week
Additional Discharge Medication Instructions: STOP aspirin- you will be on eliquis and plavix
Prescriptions:
New
amiodarone 200 mg Tablet
200 mg PO BID Qty: 60 0RF
Rx Instructions:
Dose changed on this admission
dapagliflozin propanediol 10 mg Tablet
10 mg PO DAILY Qty: 30 0RF
Rx Instructions:
New medication
doxycycline hyclate 100 mg Capsule
100 mg PO Q12 Qty: 5 0RF
clopidogrel 75 mg Tablet
75 mg PO DAILY Qty: 30 0RF
Rx Instructions:
New medication
nitroglycerin 0.4 mg Tablet, Sublingual
0.4 mg sublingual [id number] PRN (Reason: Chest Pain) Qty: 30 0RF
Rx Instructions:
New medication
furosemide 20 mg Tablet
20 mg PO DAILY Qty: 30 0RF
Rx Instructions:
New medication
metoprolol succinate 25 mg Tablet Extended Release 24 Hr
25 mg PO DAILY Qty: 30 0RF
Rx Instructions:
New medication
Continued
atorvastatin 40 MG tablet
40 mg PO DAILY
allopurinol 100 MG tablet
100 mg PO DAILY
coenzyme [id number] E 1 CAP capsule
1 cap PO DAILY
pantoprazole 40 MG tablet,delayed release (DR/EC)
40 mg PO DAILY
cholecalciferol (vitamin D3) [Vitamin D3] 50 mcg (2,000 unit) Tablet
2,000 unit PO DAILY
iron 25 MG
25 mg PO DAILY
Eliquis 5 MG tablet
2.5 mg PO BID
Discontinued
aspirin [Aspir-Low] 81 MG tablet,delayed release (DR/EC)
81 mg PO DAILY Qty: 30 0RF
lisinopril 10 mg Tablet
10 mg PO DAILY
amiodarone 100 mg Tablet
100 mg PO Q2D
Discharge Orders:
Discharge Patient (As Directed); Ordered 07/11/24
Ordered By: Eric Reis
Care Plan Goals
Care Plan Goals:
Problem: Readiness for enhanced knowledge related to diagnosis and treatment plan
Goal: Understand your diagnosis and treatment plan needs, including medications if applicable.
Instructions: Know your diagnosis, underlying causes and treatment plan options, including medications if applicable. Consult with your health care team to learn about your diagnosis and treatment plan, including medications if applicable.
Discharge Date and Time
Discharge Date/Time: 07/11/24 14:10
Print Language: ALBANIAN
== END 2024-07-11 14:10 | disposition home health service (06) | DRG 321 ==
LOC: IVU 04:11
PROVIDERS: Clinical Nurse Specialist Family Health; Internal Medicine; Internal Medicine Cardiovascular Disease; Nurse Practitioner; ADMITTING PHYSICIAN Hospitalist; ATTENDING PHYSICIAN Internal Medicine; CONSULT PHYSICIAN Internal Medicine Cardiovascular Disease; CONSULT PHYSICIAN Specialist; EMERGENCY PHYSICIAN Emergency Medicine; FAMILY PHYSICIAN Internal Medicine
PROC: 027034Z Dilation of Coronary Artery, One Artery with Drug-eluting Intraluminal Device, Percutaneous Approach (ICD-10-PCS; 2024-07-04)
PROC: 4A023N8 Measurement of Cardiac Sampling and Pressure, Bilateral, Percutaneous Approach (ICD-10-PCS; 2024-07-04)
PROC: B240ZZ3 Ultrasonography of Single Coronary Artery, Intravascular (ICD-10-PCS; 2024-07-04)
PROC: B2111ZZ Fluoroscopy of Multiple Coronary Arteries using Low Osmolar Contrast (ICD-10-PCS; 2024-07-04)
DX: I21.4 Non-ST elevation (NSTEMI) myocardial infarction (principal); I50.21 Acute systolic (congestive) heart failure; J18.9 Pneumonia, unspecified organism; I13.0 Hypertensive heart and chronic kidney disease with heart failure and stage 1 through stage 4 chronic kidney disease, or unspecified chronic kidney disease; N17.9 Acute kidney failure, unspecified; I48.92 Unspecified atrial flutter; I42.9 Cardiomyopathy, unspecified; I48.0 Paroxysmal atrial fibrillation; I25.10 Atherosclerotic heart disease of native coronary artery without angina pectoris; N18.31 Chronic kidney disease, stage 3a; Z79.01 Long term (current) use of anticoagulants; Z79.82 Long term (current) use of aspirin
CPT/HCPCS: 71046; 80048; 80053; 80061; 83735; 83880; 84100; 84484; 85025; 85027; 85730; 92610; 92978; 93005; 93306; 93460; 96374; 96375; 96376; 97116; 97162; 97165; 99152; 99153; 99285; C1725; C1753; C1874; C1887; C1894; C9600; Q9967

== ENCOUNTER → 2024-08-07 11:40 | Outpatient (REF) | payer MEDICARE, OTHER, SELFPAY | LOC: HWRAD 11:40 | PROVIDERS: ATTENDING PHYSICIAN Internal Medicine | DX: J18.9 Pneumonia, unspecified organism (principal); J12.82 Pneumonia due to coronavirus disease 2019 | CPT/HCPCS: 71046 ==

== ENCOUNTER 2024-09-05 13:35 | Outpatient (RCR) | payer MEDICARE, OTHER, SELFPAY | END 2024-09-05 23:59 | disposition home or self-care (01) | LOC: CRHB 13:35 | PROVIDERS: ATTENDING PHYSICIAN Internal Medicine Cardiovascular Disease | DX: I25.10 Atherosclerotic heart disease of native coronary artery without angina pectoris (principal); Z95.5 Presence of coronary angioplasty implant and graft; I25.2 Old myocardial infarction | CPT/HCPCS: G0422; G0423 ==

== ENCOUNTER → 2024-10-02 09:07 | Outpatient (REF) | payer MEDICARE, OTHER, SELFPAY | LOC: HWRCS 09:07 | PROVIDERS: ATTENDING PHYSICIAN Internal Medicine Cardiovascular Disease; FAMILY PHYSICIAN Internal Medicine | DX: I48.0 Paroxysmal atrial fibrillation (principal); I10 Essential (primary) hypertension | CPT/HCPCS: 93306 ==

== ENCOUNTER 2024-10-05 13:26 | Outpatient (RCR) | payer MEDICARE, OTHER, SELFPAY | END 2024-10-05 23:59 | disposition home or self-care (01) | LOC: CRHB 13:26 | PROVIDERS: ATTENDING PHYSICIAN Internal Medicine Cardiovascular Disease | DX: I21.4 Non-ST elevation (NSTEMI) myocardial infarction (principal); Z95.5 Presence of coronary angioplasty implant and graft; I25.10 Atherosclerotic heart disease of native coronary artery without angina pectoris | CPT/HCPCS: G0422; G0423 ==

== ENCOUNTER 2024-11-02 13:42 | Outpatient (RCR) | payer MEDICARE, OTHER, SELFPAY | END 2024-11-02 23:59 | disposition home or self-care (01) | LOC: CRHB 13:42 | PROVIDERS: ATTENDING PHYSICIAN Internal Medicine Cardiovascular Disease | DX: I25.2 Old myocardial infarction (principal); I25.10 Atherosclerotic heart disease of native coronary artery without angina pectoris; Z95.5 Presence of coronary angioplasty implant and graft | CPT/HCPCS: G0422; G0423 ==

== ENCOUNTER 2024-12-07 14:54 | Outpatient (RCR) | payer MEDICARE, OTHER, SELFPAY | END 2024-12-07 23:59 | disposition home or self-care (01) | LOC: CRHB 14:54 | PROVIDERS: ATTENDING PHYSICIAN Internal Medicine Cardiovascular Disease | DX: I25.2 Old myocardial infarction (principal); I25.10 Atherosclerotic heart disease of native coronary artery without angina pectoris; Z95.5 Presence of coronary angioplasty implant and graft | CPT/HCPCS: G0422; G0423 ==

== ENCOUNTER 2024-12-12 12:50 | Outpatient (RCR) | payer MEDICARE, OTHER, SELFPAY | END 2024-12-13 06:49 | disposition home or self-care (01) | LOC: CRHB 12:50 | PROVIDERS: ATTENDING PHYSICIAN Internal Medicine Cardiovascular Disease | DX: I25.2 Old myocardial infarction (principal); I21.4 Non-ST elevation (NSTEMI) myocardial infarction (principal); I25.10 Atherosclerotic heart disease of native coronary artery without angina pectoris; Z95.5 Presence of coronary angioplasty implant and graft | CPT/HCPCS: G0422 ==

== ENCOUNTER → 2025-04-23 07:41 | Outpatient (REF) | payer MEDICARE, OTHER, SELFPAY | LOC: DHVS 07:41 | PROVIDERS: ATTENDING PHYSICIAN Surgery Vascular Surgery; FAMILY PHYSICIAN Internal Medicine Cardiovascular Disease | DX: I73.9 Peripheral vascular disease, unspecified (principal); I71.40 Abdominal aortic aneurysm, without rupture, unspecified; I65.23 Occlusion and stenosis of bilateral carotid arteries | CPT/HCPCS: 76770; 93880; 93922; 93925 ==

== ENCOUNTER → 2025-07-18 09:11 | Outpatient (REF) | payer MEDICARE, OTHER, SELFPAY | LOC: RCS 09:11 | PROVIDERS: ATTENDING PHYSICIAN Internal Medicine Cardiovascular Disease; FAMILY PHYSICIAN Internal Medicine | DX: R00.1 Bradycardia, unspecified (principal); I73.9 Peripheral vascular disease, unspecified | CPT/HCPCS: 93225; 93226 ==

== ENCOUNTER → 2025-08-13 06:38 | Outpatient (REF) | payer MEDICARE, OTHER, SELFPAY | LOC: RSP 06:38 | PROVIDERS: ATTENDING PHYSICIAN Internal Medicine Cardiovascular Disease; FAMILY PHYSICIAN Internal Medicine | DX: I73.9 Peripheral vascular disease, unspecified (principal); R00.1 Bradycardia, unspecified; Z79.899 Other long term (current) drug therapy | CPT/HCPCS: 88738; 94060; 94727; 94729 ==

== ENCOUNTER → 2025-09-25 10:39 | Outpatient (REF) | payer MEDICARE, OTHER, SELFPAY | LOC: HWRAD 10:39 | PROVIDERS: ATTENDING PHYSICIAN Internal Medicine Critical Care Medicine; FAMILY PHYSICIAN Internal Medicine | DX: J98.4 Other disorders of lung (principal) | CPT/HCPCS: 71046 ==